=== PATIENT | male | born 1945 | race Caucasian/White ===

== ENCOUNTER 2017-03-04 20:27 | Observation (INO) | payer MEDICARE, OTHER ==
--- NOTE | 2017-03-04 21:05 | ERPHSYRPT ---
- History of Present Illness Time Seen by Provider: 03/04/17 21:04 Source: patient, family Exam Limitations: no limitations Patient Subjective Stated Complaint: states that pt fell on the ice and hit his head. states he was weak and almost passed out at home. Triage Nursing Assessment: pt alert and oriented. answers questions approp. slightly slow to answer at times. pt hard of hearing. pt ambulate from wheelchair to stretcher with assist. unsteady gait noted. respirations nonlabored with lungs cta. pupils equal and reactive. bilat upper and lower ext strength equal/ Physician History: states that pt fell on the ice and hit his head. states he was weak and almost passed out at home. Timing/Duration: today Severity: mild Associated Symptoms: denies symptoms Allergies/Adverse Reactions: Wiwwaer-Myr-Zef Reductase Inhibitor Allergy (Verified 03/04/17 20:52) Home Medications: Unobtainable [Unobtainable] 03/04/17 [History] Hx Tetanus, Diphtheria Vaccination/Date Given: Yes Hx Influenza Vaccination/Date Given: Yes Hx Pneumococcal Vaccination/Date Given: Yes Immunizations Up to Date: Yes - Review of Systems Constitutional: No Fever, No Chills Eyes: No Symptoms Ears, Nose, & Throat: No Symptoms Respiratory: No Cough, No Dyspnea Cardiac: No Chest Pain, No Edema, No Syncope Abdominal/Gastrointestinal: No Abdominal Pain, No Nausea, No Vomiting, No Diarrhea Genitourinary Symptoms: No Dysuria Musculoskeletal: Fall, No Back Pain, No Neck Pain Skin: No Rash Neurological: No Dizziness, No Focal Weakness, No Sensory Changes Psychological: No Symptoms Endocrine: No Symptoms All Other Systems: Reviewed and Negative - Past Medical History Neurological History: No Pertinent History Cardiac History: No Pertinent History Respiratory History: Other Endocrine Medical History: Diabetes Type II, Other Musculoskeletal History: Osteoarthritis, Osteoporosis Other Medical History: thyroid testing, lung nodules - Past Surgical History Past Surgical History: Yes Gastrointestinal: Cholecystectomy, Hernia Repair Musculoskeletal: Orthopedic Surgery Other Surgical History: bilat rcr - Social History Smoking Status: Former smoker Exposure to second hand smoke: No Drug Use: none Patient Lives Alone: No - Nursing Vital Signs Nursing Vital Signs: Initial Vital Signs Temperature 97.5 F 03/04/17 20:38 Pulse Rate 96 H 03/04/17 20:38 Respiratory Rate 18 03/04/17 20:38 Blood Pressure 165/93 03/04/17 20:38 O2 Sat by Pulse Oximetry 96 03/04/17 20:38 Pain Scale Pain Intensity 5 - Physical Exam General Appearance: no apparent distress, alert Eye Exam: PERRL/EOMI, eyes nml inspection Ears, Nose, Throat Exam: normal ENT inspection, TMs normal, pharynx normal, moist mucous membranes Neck Exam: normal inspection, non-tender, supple, full range of motion Respiratory Exam: normal breath sounds, lungs clear, No respiratory distress Cardiovascular Exam: regular rate/rhythm, normal heart sounds, normal peripheral pulses Gastrointestinal/Abdomen Exam: soft, normal bowel sounds, No tenderness, No mass Back Exam: normal inspection, normal range of motion, No CVA tenderness, No vertebral tenderness Extremity Exam: normal inspection, normal range of motion, pelvis stable Neurologic Exam: alert, oriented x 3, cooperative, normal mood/affect, nml cerebellar function, nml station & gait, sensation nml, No motor deficits Skin Exam: normal color, warm, dry, No rash Lymphatic Exam: No adenopathy SpO2: 96 Oxygen Delivery: Room Air - Course Nursing assessment & vital signs reviewed: Yes - CT Exams Head CT Interpretation: Tele-radiologist Report Ordered Tests: Active Orders 24 hr Category Date Time Status EKG-ER Only STAT Care 03/04/17 20:47 Active HEAD WITHOUT CONTRAST [CT] Stat Exams 03/04/17 20:48 Taken CBC W DIFF Stat Lab 03/04/17 20:55 Completed CMP Stat Lab 03/04/17 20:55 Completed TROPONIN Stat Lab 03/04/17 20:55 Completed Lab/Rad Data: Laboratory Result Diagrams 03/04/17 20:55 03/04/17 20:55 Laboratory Results 03/04/17 03/04/17 03/04/17 Range/Units 20:55 20:55 20:55 WBC 8.0 (4.0-10.5) K/mm3 RBC 4.64 (4.1-5.6) M/mm3 Hgb 13.7 (12.5-18.0) gm/dl Hct 40.7 L (42-50) % MCV 87.7 (78-100) fl MCH 29.5 (26-32) pg MCHC 33.7 (32-36) g/dl RDW 14.0 (11.5-14.0) % Plt Count 217 (150-450) K/mm3 MPV 9.6 H (6-9.5) fl Gran % 61.6 (36.0-66.0) % Lymphocytes % 22.4 L (24.0-44.0) % Monocytes % 10.9 (0.0-12.0) % Eosinophils % 4.6 (0.00-5.0) % Basophils % 0.5 (0.0-0.4) % Basophils # 0.04 (0-0.4) Sodium 142 (136-145) mEq/L Potassium 3.5 (3.5-5.1) mEq/L Chloride 103 (98-107) mEq/L Carbon Dioxide 29.2 (21-32) mEq/L Anion Gap 12.9 (5-15) MEQ/L BUN 19 (9-20) mg/dL Creatinine 1.75 H (0.55-1.30) mg/dl Estimated GFR 41 ML/MIN Glucose 223 H (70-110) MG/DL Calcium 10.7 H (8.5-10.1) mg/dL Total Bilirubin 0.30 (0.2-1.0) mg/dL AST 16 (15-37) U/L ALT 20 (12-78) U/L Alkaline Phosphatase 102 (46-116) U/L Troponin I 0.080 H* (0.000-0.056) ng/ml Serum Total Protein 7.1 (6.4-8.2) gm/dL Albumin 3.6 (3.4-5.0) g/dL - Progress Progress: unchanged Discussed with : Chris Will see patient in: hospital (observation) Counseled pt/family regarding: lab results, diagnosis, need for follow-up, rad results - Departure Time of Disposition: 21:55 Departure Disposition: Observation Clinical Impression: Troponin level elevated, Dizziness and giddiness Condition: Stable Critical Care Time: Yes Critical Care Time(excluding separately billable procedures): 30-74 minutes Referrals: [facility] [Primary Care Provider] -
[2017-03-04 21:08] LABS: BASOPHIL % 0.5 % (0.0-0.4); Eosinophil % 4.6 % (0.00-5.0); Granulocytes % 61.6 % (36.0-66.0); Lymphocytes % 22.4 % (24.0-44.0); Mean Cell Volume 87.7 fl (78-100); Mean Corpuscular Hemoglobin 29.5 pg (26-32); Mean Platelet Volume 9.6 fl (6-9.5); Monocytes % 10.9 % (0.0-12.0); Platelet Count 217 K/mm3 (150-450); Red Blood Count 4.64 M/mm3 (4.1-5.6)
[2017-03-04 21:31] LABS: ALBUMIN 3.6 g/dL (3.4-5.0); ANION GAP 12.9 MEQ/L (5-15); BILIRUBIN,TOTAL 0.3 mg/dL (0.2-1.0); Carbon Dioxide 29.2 mEq/L (21-32); Potassium 3.5 mEq/L (3.5-5.1); Total Protein 7.1 gm/dL (6.4-8.2)
[2017-03-04] MEDS ORDERED: NovoLIN R SQ PRN (23:06)
[2017-03-04] MEDS ORDERED: Senokot-S Tablet PO PRN (23:06)
[2017-03-04] MEDS ORDERED: MILK OF MAGNESIA 30 ML PO PRN (23:06)
[2017-03-04] MEDS ORDERED: Zofran 4 MG/2 ML VIAL IV PRN (23:06)
[2017-03-04] MEDS ORDERED: MAALOX ES 30 ML UNIT DOSE PO PRN (23:06)
[2017-03-04] MEDS ORDERED: Sodium Chloride 0.9% 500 ML 500 ML IV SCH (23:06)
[2017-03-04] MEDS: TYLENOL 325 MG PO PRN (23:19)
[2017-03-05] MEDS: TYLENOL 325 MG PO PRN (06:05)
[2017-03-05 08:06] VITALS: BP 155/81; PULSE 81; O2SAT 96
--- NOTE | 2017-03-05 09:16 | XRAY ---
Indication: Pain following posterior head injury. Nausea and feeling faint. Multiple contiguous axial images obtained through the head without contrast. Comparison: None Age-appropriate global atrophy and mild periventricular degenerative microvascular ischemia bilaterally. No acute intracranial hemorrhage, abnormal extra-axial fluid collection, or mass effect. Fourth ventricle is midline without hydrocephalus. Bony calvarium intact. Visualized paranasal sinuses and mastoid air cells are clear. Impression: Nonacute senile brain. Comment: Preliminary interpretation was made by [facility]. No discrepancy. CTDI 50.97
--- NOTE | 2017-03-05 09:26 | PCM.HP ---
History of Present Illness - Chief Complaint Chief Complaint: rule out ACS Date: 03/05/17 History of Present Illness: is a 71 year old male. who was taking his trash out in the snow yesterday and slipped on the ice hitting the back of his head. he made it back into the house but was confused. the neighbors came to help him get out of the chair and he became nauseated and vomited and they loaded him into the truck and drove him across the street to the ED. He was evaluated he denied chest pain or shortness of breath at the time. He cannot recall actually falling this am he just recalls going to take the trash out and then the neighbors being there trying to help him. He has not had chest pain overnight. He states he has history of [facility] He is unsure if he has any kidney trouble previously. He had a stress test he thinks 3 years ago that he reports was ok. Today he feels a little weak but has been up to the bathroom on his own with no dizziness or lightheadedness. He has no palpitations. He no longer has any nausea. He continues to have some pain in the back of his head where he fell on the concrete. - Review of Systems Constitutional: No Fever, No Chills Eyes: No Symptoms Ears, Nose, & Throat: No Symptoms Respiratory: No Cough, No Short Of Breath Cardiac: No Chest Pain, No Edema, No Syncope Abdominal/Gastrointestinal: No Abdominal Pain, No Nausea, No Vomiting, No Diarrhea Genitourinary Symptoms: No Dysuria Musculoskeletal: Back Pain, Neck Pain, Fall Skin: No Rash Neurological: Headache, No Dizziness, No Focal Weakness, No Sensory Changes Psychological: No Symptoms Endocrine: No Symptoms Hematologic/Lymphatic: No Symptoms Immunological/Allergic: No Symptoms Medications & Allergies Home Medications: Home Medication List Aspirin EC 325 mg [Ecotrin 325 MG] 325 mg PO DAILY 03/05/17 [History Confirmed 03/05/17] Benazepril HCl 10 mg PO DAILY 03/05/17 [History Confirmed 03/05/17] Calcium Carbonate/Vitamin D3 [Calcium 500 + Vit D Caplet] 1 each PO DAILY [History Confirmed 03/05/17] Docusate Sodium 100 mg [Colace 100 MG] 100 mg PO BIDPRN PRN 03/05/17 [ History Confirmed 03/05/17] Metformin HCl [Glucophage] 500 mg PO BID 03/05/17 [History Confirmed 03/05/17] Methocarbamol [Robaxin-750] 750 mg PO QIDPRN PRN 03/05/17 [History Confirmed ] Vit C/Vit E AC/Lut/Copper/Zinc [Preservision Lutein Softgel] 1 cap PO DAILY [History Confirmed 03/05/17] Allergies/Adverse Reactions: Allergies Allergy/AdvReac Type Severity Reaction Status Date / Time Tyguceg-Eml-Wni Reductase Allergy Verified 03/04/17 20:52 Inhibitor - Past Medical History Neurological History: No Pertinent History ENT History: No Pertinent History Cardiac History: No Pertinent History Respiratory History: Other Endocrine Medical History: Diabetes Type II, Other Musculoskelatal History: Osteoarthritis, Osteoporosis GI Medical History: No Pertinent History History: No Pertinent History Pyscho-Social History: No Pertinent History Male Reproductive Disorders: No Pertinent History Comment: thyroid testing, lung nodules - Past Surgical History Past Surgical History: Yes GI Surgical History: Cholecystectomy, Hernia Repair Musculskeletal Surgical Hx: Orthopedic Surgery Other Surgical History: bilat roator cuff repair, surgery on nose for snoring - Social History Smoking Status: Former smoker Exposure to second hand smoke: No Alcohol: None Drug Use: none - Physical Exam Vital Signs: Vital Signs - 24 hr Temp Pulse Resp BP Pulse Ox 03/05/17 08:00 98.2 F 81 18 155/81 96 03/05/17 07:51 97 03/05/17 04:00 98.0 F 89 16 170/85 97 03/04/17 23:27 98.0 F 97 H 20 166/83 94 L 03/04/17 21:56 96 03/04/17 21:32 96 H 16 142/83 100 03/04/17 20:38 97.5 F 96 H 18 165/93 96 General Appearance: no apparent distress, alert, obese Neurologic Exam: alert, oriented x 3, cooperative, normal mood/affect, nml cerebellar function, nml station & gait, sensation nml, No motor deficits Eye Exam: PERRL/EOMI, eyes nml inspection Ears, Nose, Throat Exam: normal ENT inspection, pharynx normal, moist mucous membranes Neck Exam: normal inspection, non-tender, supple, full range of motion Respiratory Exam: normal breath sounds, lungs clear, No respiratory distress Cardiovascular Exam: regular rate/rhythm, normal peripheral pulses, murmur (3/6 systolic at left sternal border), No edema Gastrointestinal/Abdomen Exam: soft, normal bowel sounds, No tenderness, No mass Back Exam: normal inspection, normal range of motion, No CVA tenderness, No vertebral tenderness Extremity Exam: normal inspection, normal range of motion, pelvis stable Skin Exam: normal color, warm, dry, No rash Lymphatic Exam: No adenopathy Results - Labs Lab/Micro Results: Accuchecks Date 03/05/17 Time 07:30 Accucheck Value: 145 Lab Results-Last 24 Hours 03/05/17 03/05/17 03/05/17 Range/Units 00:10 03:10 05:55 Troponin I 0.082 H* 0.087 H* (0.000-0.056) ng/ml Triglycerides 313 H (30-200) mg/dL Cholesterol 227 H (100-200) mg/dL LDL Cholesterol 130 H (5-99) mg/dL HDL Cholesterol 35 (35-60) mg/dL Heart Disease Risk Ratio 6.5 03/05/17 Range/Units 05:55 Troponin I 0.080 H* (0.000-0.056) ng/ml Triglycerides (30-200) mg/dL Cholesterol (100-200) mg/dL LDL Cholesterol (5-99) mg/dL HDL Cholesterol (35-60) mg/dL Heart Disease Risk Ratio Accuchecks Date 03/05/17 Time 07:30 Accucheck Value: 145 - Other Procedures and Tests Respiratory Therapy 03/06/17 05:00 EKG DAILY 03/07/17 05:00 EKG DAILY 03/08/17 05:00 EKG DAILY Assessment/Plan (1) Concussion Current Visit: Yes Status: Acute Assessment & Plan: symptoms resolving with exception of headache 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 He is ambulating well now he has renal insufficiency no old labs available to compare if this acute or chronic He has mild elevation in troponin that has remained stable throughout the night He has no evidence of acs on repeat ekg and no chest pain or sob. We discussed continue the aspirin. he is allergic to statins. We discussed in detail importance of outpatient follow up for further cardiac testing We recommended him have a stress test and echo with his murmur. [facility] Code(s): S06.0X9A - CONCUSSION W LOSS OF CONSCIOUSNESS OF UNSP DURATION, INIT (2) Fall Current Visit: Yes Status: Acute Code(s): W19.XXXA - UNSPECIFIED FALL, INITIAL ENCOUNTER (3) Renal insufficiency Current Visit: Yes Status: Acute (4) Troponin level elevated Current Visit: Yes Status: Acute Code(s): R74.8 - ABNORMAL LEVELS OF OTHER SERUM ENZYMES (5) Diabetes type 2, controlled Current Visit: Yes Status: Chronic Code(s): E11.9 - TYPE 2 DIABETES MELLITUS WITHOUT COMPLICATIONS
[2017-03-05] MEDS ORDERED: PLAVIX 75 MG Tablet PO SCH (10:00)
[2017-03-05] MEDS ORDERED: ENOXAPARIN SODIUM SQ SCH (10:00)
[2017-03-05] MEDS ORDERED: Ecotrin 325 MG PO SCH (10:00)
[2017-03-05 10:03] LABS: ANION GAP 13.3 MEQ/L (5-15); Carbon Dioxide 28.6 mEq/L (21-32); Potassium 3.5 mEq/L (3.5-5.1)
[2017-03-05 10:07] LABS: TROPONIN 0.081 ng/ml (0.000-0.056)
--- NOTE | 2017-03-05 10:12 | PCM.DCORD ---
- Discharge Discharge Date: 03/05/17 Disposition: Home, Self-Care Condition: Stable Prescriptions: Continue Vit C/Vit E AC/Lut/Copper/Zinc [Preservision Lutein Softgel] 1 cap PO DAILY Docusate Sodium 100 mg [Colace 100 MG] 100 mg PO BIDPRN PRN PRN Reason: Constipation Calcium Carbonate/Vitamin D3 [Calcium 500 + Vit D Caplet] 1 each PO DAILY Methocarbamol [Robaxin-750] 750 mg PO QIDPRN PRN PRN Reason: back pain Aspirin EC 325 mg [Ecotrin 325 MG] 325 mg PO DAILY Benazepril HCl 10 mg PO DAILY Metformin HCl [Glucophage] 500 mg PO BID Additional Instructions: Recommend follow up cardiac echocardiogram and stress test He would [facility]. He is calling tomorrow 03/06/17 [facility] [place] [facility] Follow up with: [facility] [Primary Care Provider] -
== END 2017-03-05 11:11 | disposition home or self-care (01) ==
LOC: ED 20:27 → MED SURG 22:50
PROVIDERS: ADMIT Family Medicine; ATTEND Family Medicine
DX: S06.0X9A Concussion with loss of consciousness of unspecified duration, initial encounter (principal); W00.0XXA Fall on same level due to ice and snow, initial encounter; Y93.9 Activity, unspecified; Y92.9 Unspecified place or not applicable; E11.9 Type 2 diabetes mellitus without complications; M81.0 Age-related osteoporosis without current pathological fracture; M19.90 Unspecified osteoarthritis, unspecified site; N28.9 Disorder of kidney and ureter, unspecified; R74.8 Abnormal levels of other serum enzymes
CPT/HCPCS: 36000; 36415; 70450; 80048; 80053; 80061; 83721; 84484; 85025; 93005; 93268; 99285; G0378; J1650; A9270-GY

== ENCOUNTER 2017-03-09 11:18 | Emergency (ER) | payer MEDICARE, OTHER ==
--- NOTE | 2017-03-09 11:44 | ERPHSYRPT ---
- History of Present Illness Time Seen by Provider: 03/09/17 11:34 Source: patient Exam Limitations: no limitations Physician History: The patient is a 71-year-old male with his who fell [place] kerline and has not been "right" since. He came to this hospital and had a head CT done and even spent the night for observation. Since his discharge, his speech has been slow and he has not been walking well. He still has a headache from the fall. He feels woozy when he stands. He is also had intermittent chest pains for 3 months. His chest pain will be sharp and lasts only 30 seconds to 1 minute at a time. His past medical history is significant for hypertension, chronic back pain with compression fracture in lumbar spine, and diabetes. Occurred: days ago (6) Reason for Fall: lost balance, fell from standing pos Injuries/Pain Location: head Loss of Consciousness: no loss of consciousness Severity of Pain-Max: mild Severity of Pain-Current: none Modifying Factors: Improves With: nothing Associated Symptoms (Fall): headache, lightheadedness, slurred speech, trouble walking Allergies/Adverse Reactions: Gqmfslz-Rxc-Bwh Reductase Inhibitor Allergy (Verified 03/09/17 11:35) Home Medications: Aspirin EC 325 mg [Ecotrin 325 MG] 325 mg PO DAILY 03/05/17 [History] Benazepril HCl 10 mg PO DAILY 03/05/17 [History] Calcium Carbonate/Vitamin D3 [Calcium 500 + Vit D Caplet] 1 each PO DAILY [History] Docusate Sodium 100 mg [Colace 100 MG] 100 mg PO BIDPRN PRN 03/05/17 [ History] Metformin HCl [Glucophage] 500 mg PO BID 03/05/17 [History] Methocarbamol [Robaxin-750] 750 mg PO QIDPRN PRN 03/05/17 [History] Vit C/Vit E AC/Lut/Copper/Zinc [Preservision Lutein Softgel] 1 cap PO DAILY [History] Amlodipine Besylate 10 mg [Norvasc 10 MG] 10 mg PO DAILY 03/09/17 [History] Hx Tetanus, Diphtheria Vaccination/Date Given: Yes Hx Influenza Vaccination/Date Given: Yes Hx Pneumococcal Vaccination/Date Given: Yes - Review of Systems Constitutional: No Fever, No Chills Eyes: No Symptoms Ears, Nose, & Throat: No Symptoms Respiratory: No Cough, No Dyspnea Cardiac: Chest Pain Abdominal/Gastrointestinal: No Abdominal Pain, No Nausea, No Vomiting, No Diarrhea Genitourinary Symptoms: No Dysuria Musculoskeletal: Back Pain Skin: No Rash Neurological: Headache, Speech Changes Psychological: No Symptoms Endocrine: No Symptoms Hematologic/Lymphatic: No Symptoms Immunological/Allergic: No Symptoms All Other Systems: Reviewed and Negative - Past Medical History Neurological History: No Pertinent History ENT History: No Pertinent History Cardiac History: No Pertinent History Respiratory History: Other Endocrine Medical History: Diabetes Type II, Other Musculoskeletal History: Osteoarthritis, Osteoporosis GI Medical History: No Pertinent History History: No Pertinent History Psycho-Social History: No Pertinent History Male Reproductive Disorders: No Pertinent History Other Medical History: thyroid testing, lung nodules - Past Surgical History Past Surgical History: Yes Gastrointestinal: Cholecystectomy, Hernia Repair Musculoskeletal: Orthopedic Surgery Other Surgical History: bilat roator cuff repair, surgery on nose for snoring - Social History Smoking Status: Former smoker Exposure to second hand smoke: No Drug Use: none Patient Lives Alone: No - Nursing Vital Signs Nursing Vital Signs: Initial Vital Signs Temperature 97.9 F 03/09/17 11:29 Pulse Rate 86 03/09/17 11:29 Respiratory Rate 18 03/09/17 11:29 Blood Pressure 159/86 03/09/17 11:29 O2 Sat by Pulse Oximetry 99 03/09/17 11:29 Pain Scale Pain Intensity 0 - Grace Coma Score Best Eye Response ([place]): (4) open spontaneously Best Verbal Response (Grace): (5) oriented Best Motor Response (Grace): (6) obeys commands [place] Total: 15 - Physical Exam General Appearance: mild distress Head Injury: no evidence of injury Eye Exam: PERRL/EOMI ENT Exam: airway nml Neck Exam: normal inspection, No tenderness Respiratory/Chest Exam: normal breath sounds, No chest tenderness, No respiratory distress Cardiovascular Exam: normal heart sounds, regular rate/rhythm Gastrointestinal Exam: soft, No tenderness, No distention, No guarding, No ecchymosis Rectal Exam: not done Back Exam: point tenderness Extremity Exam: normal inspection, normal range of motion, pelvis stable, No deformities Neurologic Exam: alert, oriented x 3, cooperative, architectural renderer II-XII nml as tested, normal mood/affect, dysarthria, other (difficulty with finger to nose testing bilateral), No nml cerebellar function Skin Exam: normal color, warm, dry SpO2 Interpretation: normal - Course EKG Interpreted by Me: RATE, Sinus Rhythm, NORMAL INTERVALS, NORMAL QRS, NORMAL ST-T, Other (no change comp to EKG 03/05/17.) - CT Exams Head CT Interpretation: Negative, Tele-radiologist Report, No/Intracranial Hemorrhag (per Dr Zambrano.) Ordered Tests: Active Orders 24 hr Category Date Time Status EKG-ER Only STAT Care 03/09/17 11:51 Active HEAD WITHOUT CONTRAST [CT] Stat Exams 03/09/17 11:52 Completed CBC W DIFF Stat Lab 03/09/17 11:51 Completed CMP Stat Lab 03/09/17 12:11 Completed CULTURE,URINE Stat Lab 03/09/17 13:10 Received Lactic Acid Stat Lab 03/09/17 12:00 Completed Manual Differential NC Stat Lab 03/09/17 11:51 Completed PROTIME WITH INR Stat Lab 03/09/17 12:11 Completed PTT Stat Lab 03/09/17 12:11 Completed UA W/ MICROSCOPIC Stat Lab 03/09/17 13:10 Completed Lab/Rad Data: Laboratory Result Diagrams 03/09/17 11:51 03/09/17 12:11 Laboratory Results 03/09/17 03/09/17 03/09/17 Range/Units 13:10 12:11 12:11 WBC (4.0-10.5) K/mm3 RBC (4.1-5.6) M/mm3 Hgb (12.5-18.0) gm/dl Hct (42-50) % MCV (78-100) fl MCH (26-32) pg MCHC (32-36) g/dl RDW (11.5-14.0) % Plt Count (150-450) K/mm3 MPV (6-9.5) fl Absolute Neutrophils (1.4-6.9) Segmented Neutrophils (36.-66.) % Band Neutrophils (0.0-2.0) % Lymphocytes (Manual) (24-44) % Monocytes (Manual) (0.0-12.0) % Eosinophils (Manual) (0.00-3.0) % Metamyelocytes % Differential Comment Platelet Estimate (NORMAL) Microcytosis INR 1.03 (0.8-3.0) APTT 30.8 (24.1-36.1) SECONDS Sodium 143 (136-145) mEq/L Potassium 3.7 (3.5-5.1) mEq/L Chloride 105 (98-107) mEq/L Carbon Dioxide 29.4 (21-32) mEq/L Anion Gap 11.8 (5-15) MEQ/L BUN 18 (9-20) mg/dL Creatinine 1.35 H (0.55-1.30) mg/dl Estimated GFR 55 ML/MIN Glucose 135 H (70-110) MG/DL Lactic Acid (0.4-2.0) Calcium 10.8 H (8.5-10.1) mg/dL Total Bilirubin 0.30 (0.2-1.0) mg/dL AST 16 (15-37) U/L ALT 23 (12-78) U/L Alkaline Phosphatase 87 (46-116) U/L Serum Total Protein 7.0 (6.4-8.2) gm/dL Albumin 3.4 (3.4-5.0) g/dL Ur Collection Type VOID Urine Color YELLOW (YELLOW) Urine Appearance CLEAR (CLEAR) Urine pH 6.0 (5-6) Ur Specific [place] 1.015 (1.005-1.025) Urine Protein TRACE (Negative) Urine Ketones NEGATIVE (NEGATIVE) Urine Blood NEGATIVE (0-5) Marc/ul Urine Nitrite NEGATIVE (NEGATIVE) Urine Bilirubin NEGATIVE (NEGATIVE) Urine Urobilinogen NORMAL (0-1) mg/dL Ur Leukocyte Esterase TRACE (NEGATIVE) Urine Microscopic RBC 0-2 (0-2) /HPF Urine Microscopic WBC 5-10 (0-5) /HPF Ur Epithelial Cells FEW (FEW) /HPF Urine Bacteria FEW (NEGATIVE) /HPF Urine Culture Reflexed YES (NO) Urine Glucose NEGATIVE (NEGATIVE) mg/dL Specimen Received 03/09/17 1310 03/09/17 03/09/17 Range/Units 12:00 11:51 WBC 8.5 (4.0-10.5) K/mm3 RBC 4.62 (4.1-5.6) M/mm3 Hgb 13.4 (12.5-18.0) gm/dl Hct 39.7 L (42-50) % MCV 85.9 (78-100) fl MCH 29.0 (26-32) pg MCHC 33.8 (32-36) g/dl RDW 13.7 (11.5-14.0) % Plt Count 220 (150-450) K/mm3 MPV 9.7 H (6-9.5) fl Absolute Neutrophils 5.5 (1.4-6.9) Segmented Neutrophils 60 (36.-66.) % Band Neutrophils 3 H (0.0-2.0) % Lymphocytes (Manual) 27 (24-44) % Monocytes (Manual) 5 (0.0-12.0) % Eosinophils (Manual) 4 H (0.00-3.0) % Metamyelocytes 1 % Differential Comment ABNORMAL Platelet Estimate NORMAL (NORMAL) Microcytosis 1+ INR (0.8-3.0) APTT (24.1-36.1) SECONDS Sodium (136-145) mEq/L Potassium (3.5-5.1) mEq/L Chloride (98-107) mEq/L Carbon Dioxide (21-32) mEq/L Anion Gap (5-15) MEQ/L BUN (9-20) mg/dL Creatinine (0.55-1.30) mg/dl Estimated GFR ML/MIN Glucose (70-110) MG/DL Lactic Acid 1.2 (0.4-2.0) Calcium (8.5-10.1) mg/dL Total Bilirubin (0.2-1.0) mg/dL AST (15-37) U/L ALT (12-78) U/L Alkaline Phosphatase (46-116) U/L Serum Total Protein (6.4-8.2) gm/dL Albumin (3.4-5.0) g/dL Ur Collection Type Urine Color (YELLOW) Urine Appearance (CLEAR) Urine pH (5-6) Ur Specific [place] (1.005-1.025) Urine Protein (Negative) Urine Ketones (NEGATIVE) Urine Blood (0-5) Marc/ul Urine Nitrite (NEGATIVE) Urine Bilirubin (NEGATIVE) Urine Urobilinogen (0-1) mg/dL Ur Leukocyte Esterase (NEGATIVE) Urine Microscopic RBC (0-2) /HPF Urine Microscopic WBC (0-5) /HPF Ur Epithelial Cells (FEW) /HPF Urine Bacteria (NEGATIVE) /HPF Urine Culture Reflexed (NO) Urine Glucose (NEGATIVE) mg/dL Specimen Received - Departure Time of Disposition: 13:41 Departure Disposition: Home Clinical Impression: UTI (urinary tract infection) Condition: Stable Critical Care Time: No Referrals: [facility] [Primary Care Provider] - Additional Instructions: The problems that you have been experiencing recently are due to a urinary tract infection. You were given Rocephin 1 g by IV in the ER. Take Keflex 500 mg 4 times a day for 7 days. Follow-up next week. If the condition worsens, do not hesitate to return to the ER. Prescriptions: Cephalexin Mh 500 mg [Keflex 500 mg] 1 cap PO QID #28 capsule
[2017-03-09 12:18] LABS: Hematocrit 39.7 % (42-50); Hemoglobin 13.4 gm/dl (12.5-18.0); Mean Cell Volume 85.9 fl (78-100); Mean Corpuscular Hgb Concent. 33.8 g/dl (32-36); Mean Platelet Volume 9.7 fl (6-9.5); Platelet Count 220 K/mm3 (150-450); Red Blood Count 4.62 M/mm3 (4.1-5.6); Red Cell Distribution Width 13.7 % (11.5-14.0); White Blood Count 8.5 K/mm3 (4.0-10.5)
[2017-03-09 12:34] LABS: INR 1.03 (0.8-3.0)
[2017-03-09 12:36] LABS: PTT 30.8 SECONDS (24.1-36.1)
[2017-03-09 12:40] LABS: ALBUMIN 3.4 g/dL (3.4-5.0); ANION GAP 11.8 MEQ/L (5-15); BILIRUBIN,TOTAL 0.3 mg/dL (0.2-1.0); Calcium 10.8 mg/dL (8.5-10.1); Carbon Dioxide 29.4 mEq/L (21-32); Creatinine 1 1.35 mg/dl (0.55-1.30); Potassium 3.7 mEq/L (3.5-5.1)
[2017-03-09 12:53] LABS: ABSOLUTE NEUTROPHILS 5.5 (1.4-6.9); Neutrophils 60 % (36.-66.); Total Cells Counted 100
[2017-03-09 12:54] LABS: BAND 3 % (0.0-2.0); Eosinophil 4 % (0.00-3.0); Lymphocytes 27 % (24-44); Metamyelocyte 1 %; Microcytosis 1+; Monocyte 5 % (0.0-12.0); Platelet Estimate NORMAL (NORMAL)
--- NOTE | 2017-03-09 12:58 | XRAY ---
Indication: Dizziness and confusion. Difference in speech. Status post fall 5 days ago. Multiple contiguous axial images obtained through the head without contrast. Comparison: March 04, 2017. Stable global atrophy and mild periventricular degenerative micro-ischemia. No acute intracranial hemorrhage, abnormal extra-axial fluid collection, or mass effect. Fourth ventricle is midline without hydrocephalus. Bony calvarium remains intact. Visualized paranasal sinuses and mastoid air cells are clear. Impression: Stable nonacute senile brain. CT DI 49.71
[2017-03-09 13:21] VITALS: O2SAT 97
[2017-03-09 13:32] LABS: Appearance CLEAR (CLEAR); Bacteria FEW /HPF (NEGATIVE); Bilirubin NEGATIVE (NEGATIVE); Blood NEGATIVE Ery/ul (0-5); Epithelial Cells FEW /HPF (FEW); Glucose NEGATIVE (NEGATIVE); Ketones NEGATIVE (NEGATIVE); Leukocyte Esterase TRACE (NEGATIVE); Nitrite NEGATIVE (NEGATIVE); Protein,Urine Dip TRACE (Negative); Specific Gravity 1.015 (1.005-1.025); Urobilinogen NORMAL mg/dL (0-1)
[2017-03-09] MEDS ORDERED: ROCEPHIN 1 Gm-D5w 50 ml Bag** 1 G/50 ML IVPB IV STA (13:41)
[2017-03-09] MEDS ORDERED: ROCEPHIN 1 Gm-D5w 50 ml Bag** 1 G/50 ML IVPB IV ONE (13:50)
[2017-03-09 14:17] VITALS: BP 188/46; PULSE 68
== END 2017-03-09 14:16 | disposition home or self-care (01) ==
LOC: ED 11:18
DX: N39.0 Urinary tract infection, site not specified (principal); R51 Headache; R47.81 Slurred speech; R26.2 Difficulty in walking, not elsewhere classified; W01.0XXA Fall on same level from slipping, tripping and stumbling without subsequent striking against object, initial encounter; E11.9 Type 2 diabetes mellitus without complications; Z79.4 Long term (current) use of insulin; M81.0 Age-related osteoporosis without current pathological fracture; M19.90 Unspecified osteoarthritis, unspecified site; Z79.899 Other long term (current) drug therapy; Z87.891 Personal history of nicotine dependence
CPT/HCPCS: 36415; 70450; 80053; 81000; 83605; 85025; 85610; 85730; 87086; 93005; 96365; 99284; J0696

== ENCOUNTER 2018-01-26 15:18 | Emergency (ER) | payer MEDICARE, OTHER ==
[2018-01-26] MEDS ORDERED: Sodium Chloride 0.9% 1000 ML 1,000 ML ONE (16:09)
--- NOTE | 2018-01-26 16:11 | ERPHSYRPT ---
- History of Present Illness Time Seen by Provider: 01/26/18 16:06 Source: patient Exam Limitations: no limitations Patient Subjective Stated Complaint: sudden onset dizziness prior to arrival. staets was feeling fine this AM./ did not take his B/P med this AM denies pain Triage Nursing Assessment: slow to answer questions.. very [place]. unable to tell me year or month. [employer] + but slightly weak bilaterally. does not want to open his eyes. says the lights are too bright.. noted MUNDO and no nystagmus noted. able to move lower extremities on command. states doesnt remember eating today. head turned to left Physician History: Him this is a 72-year-old white male with a history of diabetes type 2, osteoarthritis, osteoporosis, who apparently has been worked up for thyroid problems in the past but the family states he doesn't have any, and a history of lung nodules. He arrives with the medics with complaint patient with a sudden onset of dizziness, Symptoms since approximately one hour prior to arrival Medics were summoned and patient was noted to have elevated blood pressure patient was given nitroglycerin him one sublingually. Patient now states that he has a headache. He has not had a fever.He has no chest pain no shortness of breath, he does state that he is somewhat nauseous. Past medical history includes diabetes, osteoarthritis, osteoporosis, thyroid a workup in the past, lung nodules. Past surgical history includes cholecystectomy, hernia repair, thyroid surgery, bilateral rotator cuff repair, surgery on his nose for snoring. Social history former smoker. Timing/Duration: today (one hour prior to arrival) Severity: moderate Modifying Factors: Improves With: nothing Associated Symptoms: nausea, headaches (headache after nitroglycerine), malaise , No vomiting, No abdominal pain, No shortness of breath, No heartburn, No diaphoresis, No cough, No chills, No chest pain, No fever, No loss of appetite, No rash, No syncope, No seizure, No weakness Allergies/Adverse Reactions: Mrhncvq-Anj-Lrd Reductase Inhibitor Allergy (Verified 01/26/18 15:50) Home Medications: Aspirin EC 325 mg [Ecotrin 325 MG] 325 mg PO DAILY 03/05/17 [History] Benazepril HCl 10 mg PO DAILY 03/05/17 [History] Calcium Carbonate/Vitamin D3 [Calcium 500 + Vit D Caplet] 1 each PO DAILY [History] Docusate Sodium 100 mg [Colace 100 MG] 100 mg PO BIDPRN PRN 03/05/17 [ History] Metformin HCl [Glucophage] 500 mg PO BID 03/05/17 [History] Methocarbamol [Robaxin-750] 750 mg PO QIDPRN PRN 03/05/17 [History] Vit C/Vit E AC/Lut/Copper/Zinc [Preservision Lutein Softgel] 1 cap PO DAILY [History] Amlodipine Besylate 10 mg [Norvasc 10 MG] 10 mg PO DAILY 03/09/17 [History] Hx Tetanus, Diphtheria Vaccination/Date Given: Yes Hx Influenza Vaccination/Date Given: Yes Hx Pneumococcal Vaccination/Date Given: Yes - Review of Systems Constitutional: No Fever, No Chills Eyes: No Symptoms Ears, Nose, & Throat: No Symptoms Respiratory: No Cough, No Dyspnea Cardiac: No Chest Pain, No Edema, No Syncope Abdominal/Gastrointestinal: No Abdominal Pain, No Nausea, No Vomiting, No Diarrhea Genitourinary Symptoms: No Dysuria Musculoskeletal: No Back Pain, No Neck Pain Skin: No Rash Neurological: Dizziness, Headache (headache after nitroglycerine), No Focal Weakness, No Gait Changes, No Irritability, No Lethargy, No Paralysis, No Parasthesia, No Seizure, No Sensory Changes, No Speech Changes, No Tics, No Tremors, No Vertigo Psychological: No Symptoms Endocrine: No Symptoms All Other Systems: Reviewed and Negative - Past Medical History Pertinent Past Medical History: Yes Neurological History: No Pertinent History ENT History: No Pertinent History Cardiac History: No Pertinent History Respiratory History: Other Endocrine Medical History: Diabetes Type II, Other Musculoskeletal History: Osteoarthritis, Osteoporosis GI Medical History: No Pertinent History History: No Pertinent History Psycho-Social History: No Pertinent History Male Reproductive Disorders: No Pertinent History Other Medical History: thyroid testing, lung nodules - Past Surgical History Past Surgical History: Yes Gastrointestinal: Cholecystectomy, Hernia Repair Musculoskeletal: Orthopedic Surgery Other Surgical History: bilat roator cuff repair, surgery on nose for snoring - Social History Smoking Status: Never smoker Exposure to second hand smoke: No Drug Use: none Patient Lives Alone: No - Nursing Vital Signs Nursing Vital Signs: Initial Vital Signs Temperature 98.7 F 01/26/18 15:19 Pulse Rate 85 01/26/18 15:19 Blood Pressure 152/104 01/26/18 15:19 O2 Sat by Pulse Oximetry 94 L 01/26/18 15:19 Pain Scale Pain Intensity 0 - Physical Exam General Appearance: other (elderly white malehe does not appear to bein acute distress oriented to himselfand place) Eye Exam: PERRL/EOMI, eyes nml inspection Ears, Nose, Throat Exam: normal ENT inspection, TMs normal, pharynx normal, moist mucous membranes Neck Exam: normal inspection, non-tender, supple, full range of motion Respiratory Exam: normal breath sounds, lungs clear, No respiratory distress Cardiovascular Exam: regular rate/rhythm, normal heart sounds, normal peripheral pulses Gastrointestinal/Abdomen Exam: soft, normal bowel sounds, No tenderness, No mass Back Exam: normal inspection Extremity Exam: normal inspection, normal range of motion, pelvis stable Neurologic Exam: alert, oriented x 3 (oriented to person and place), cooperative , pipe roller II-XII nml as tested, other (Patient is alert, answers questions well and appropriately, no facial droop, cranial nerves II through XII intact, freedom of information officer equal 5 over 5, normal finger to nose, full range of motion all extremities, sensation intact to all extremities, GCS equals 15), No motor deficits, No sensory deficit Skin Exam: normal color, warm, dry, No rash SpO2 Interpretation: normal (94%) SpO2: 94 Oxygen Delivery: Room Air - Course Nursing assessment & vital signs reviewed: Yes EKG Interpreted by Me: RATE (89 bpm), Sinus Rhythm, NORMAL AXIS, Other (EKG: Sinus rhythm, first degree AV block 89 bpm, normal axis,poor anterior R-wave progression, no acute ST or T wave changes, no acute changes as compared to March 09, 2017.) - Radiology Exams Chest X-ray Interpretation: Interpreted by me (chest x-ray: Low lung volumes, increased lung markings in right base possibly secondary to atelectasis) - CT Exams Head CT Interpretation: Tele-radiologist Report (head CT: Impression: 1. No acute intracranial pathology. 2 other chronic findings as above (brain small areas of chronic right parietal encephalomalacia. Nonspecific hypodensities of the periventricular and deep subcortical white matte. Most likely secondary to chronic small vessel. Ventricles: Prominence of the ventricals and sulci, most likely attributed to iveth no volume loss, vasculature atherosclerotic calcification of the intracranial arterial vasculature.) Ordered Tests: Active Orders 24 hr Category Date Time Status Accucheck STAT Care 01/26/18 16:03 Active Is/It Project Manager STAT Care 01/26/18 16:04 Active EKG-ER Only STAT Care 01/26/18 16:03 Active IV Insertion STAT Care 01/26/18 16:03 Active CHEST 1 VIEW (PORTABLE) Stat Exams 01/26/18 16:04 Completed HEAD WITHOUT CONTRAST [CT] Stat Exams 01/26/18 16:04 Completed CBC W DIFF Stat Lab 01/26/18 16:15 Completed CMP Stat Lab 01/26/18 16:15 Completed ETHYL ALCOHOL Stat Lab 01/26/18 16:15 Completed Lactic Acid Stat Lab 01/26/18 16:15 Completed Manual Differential NC Stat Lab 01/26/18 16:15 Completed TROPONIN Q3H Lab 01/26/18 16:15 Completed TROPONIN Q3H Lab 01/26/18 19:15 Ordered TROPONIN Q3H Lab 01/26/18 22:15 Ordered TROPONIN Q3H Lab 01/27/18 01:15 Ordered TROPONIN Q3H Lab 01/27/18 04:15 Ordered UA W/RFX UR CULTURE Stat Lab 01/26/18 17:11 Completed Medication Summary Generic Name Dose Route Start Last Admin Trade Name Freq PRN Reason Stop Dose Admin Sodium Chloride 1,000 mls @ 100 mls/hr 01/26/18 16:15 01/26/18 16:11 Sodium Chloride 0.9% 1000 Ml IV 02/25/18 16:14 100 mls/hr .Q10H MILANA Administration Lab/Rad Data: Laboratory Result Diagrams 01/26/18 16:15 01/26/18 16:15 Laboratory Results 01/26/18 01/26/18 01/26/18 Range/Units 17:11 16:15 16:15 WBC (4.0-10.5) K/mm3 RBC (4.1-5.6) M/mm3 Hgb (12.5-18.0) gm/dl Hct (42-50) % MCV (78-100) fl MCH (26-32) pg MCHC (32-36) g/dl RDW (11.5-14.0) % Plt Count (150-450) K/mm3 MPV (6-9.5) fl Segmented Neutrophils (36.-66.) % Band Neutrophils (0.0-2.0) % Lymphocytes (Manual) (24-44) % Monocytes (Manual) (0.0-12.0) % Eosinophils (Manual) (0.00-3.0) % Platelet Estimate (NORMAL) RBC Morphology Sodium 142 (137-145) mmol/L Potassium 4.2 (3.5-5.1) mmol/L Chloride 103 (98-107) mmol/L Carbon Dioxide 30 (22-30) mmol/L Anion Gap 13.3 (5-15) MEQ/L BUN 19 (9-20) mg/dL Creatinine 1.04 (0.66-1.25) mg/dL Estimated GFR > 60.0 ML/MIN Glucose 133 H (74-106) mg/dL Lactic Acid (0.4-2.0) Calcium 9.5 (8.4-10.2) mg/dL Total Bilirubin 0.30 (0.2-1.3) mg/dL AST 15 L (17-59) U/L ALT 17 (0-50) U/L Alkaline Phosphatase 90 (38-126) U/L Troponin I 0.019 (0.000-0.034) ng/mL Serum Total Protein 6.9 (6.3-8.2) g/dL Albumin 4.1 (3.5-5.0) g/dL Urine Color YELLOW (YELLOW) Urine Appearance CLEAR (CLEAR) Urine pH 6.0 (5-6) Ur Specific [place] 1.019 (1.005-1.025) Urine Protein NEGATIVE (Negative) Urine Ketones NEGATIVE (NEGATIVE) Urine Blood NEGATIVE (0-5) Marc/ul Urine Nitrite NEGATIVE (NEGATIVE) Urine Bilirubin NEGATIVE (NEGATIVE) Urine Urobilinogen NEGATIVE (0-1) mg/dL Ur Leukocyte Esterase NEGATIVE (NEGATIVE) Urine WBC (Auto) NONE (0-5) /HPF Urine RBC (Auto) NONE (0-2) /HPF U Hyaline Cast (Auto) 0-2 (0-2) /LPF U Epithel Cells (Auto) NONE (FEW) /HPF Urine Bacteria (Auto) NONE SEEN (NEGATIVE) /HPF Urine Culture Reflexed NO (NO) Urine Glucose NEGATIVE (NEGATIVE) mg/dL Ethyl Alcohol < 10 (0-10) mg/dL 01/26/18 01/26/18 Range/Units 16:15 16:15 WBC 7.7 (4.0-10.5) K/mm3 RBC 4.85 (4.1-5.6) M/mm3 Hgb 14.5 (12.5-18.0) gm/dl Hct 42.9 (42-50) % MCV 88.5 (78-100) fl MCH 29.9 (26-32) pg MCHC 33.8 (32-36) g/dl RDW 14.0 (11.5-14.0) % Plt Count 212 (150-450) K/mm3 MPV 9.7 H (6-9.5) fl Segmented Neutrophils 68 H (36.-66.) % Band Neutrophils 1 (0.0-2.0) % Lymphocytes (Manual) 18 L (24-44) % Monocytes (Manual) 7 (0.0-12.0) % Eosinophils (Manual) 6 H (0.00-3.0) % Platelet Estimate NORMAL (NORMAL) RBC Morphology NORMAL Sodium (137-145) mmol/L Potassium (3.5-5.1) mmol/L Chloride (98-107) mmol/L Carbon Dioxide (22-30) mmol/L Anion Gap (5-15) MEQ/L BUN (9-20) mg/dL Creatinine (0.66-1.25) mg/dL Estimated GFR ML/MIN Glucose (74-106) mg/dL Lactic Acid 1.6 (0.4-2.0) Calcium (8.4-10.2) mg/dL Total Bilirubin (0.2-1.3) mg/dL AST (17-59) U/L ALT (0-50) U/L Alkaline Phosphatase (38-126) U/L Troponin I (0.000-0.034) ng/mL Serum Total Protein (6.3-8.2) g/dL Albumin (3.5-5.0) g/dL Urine Color (YELLOW) Urine Appearance (CLEAR) Urine pH (5-6) Ur Specific [place] (1.005-1.025) Urine Protein (Negative) Urine Ketones (NEGATIVE) Urine Blood (0-5) Marc/ul Urine Nitrite (NEGATIVE) Urine Bilirubin (NEGATIVE) Urine Urobilinogen (0-1) mg/dL Ur Leukocyte Esterase (NEGATIVE) Urine WBC (Auto) (0-5) /HPF Urine RBC (Auto) (0-2) /HPF U Hyaline Cast (Auto) (0-2) /LPF U Epithel Cells (Auto) (FEW) /HPF Urine Bacteria (Auto) (NEGATIVE) /HPF Urine Culture Reflexed (NO) Urine Glucose (NEGATIVE) mg/dL Ethyl Alcohol (0-10) mg/dL - Progress Progress: improved Progress Note: 01/26/18 17:42 This is a 72-year-old white male with history of diabetes, osteoarthritis, osteoporosis, he arrives via ambulance with complaints of suddenly felt dizzy while sitting at the table he apparently laid his head down onto the table medics were summoned who is noted to have an elevated blood pressure they gave him nitroglycerin. Nurses had reported the patient's seemed to be perhaps somewhat confused on arrival By the time I got into the room patient was alert and talking We did a head CT on this patient it did not show acute intracranial abnormalities patient's vitals were stable EKG is remarkable for sinus rhythm with first-degree AV block 89 bpm normal axis no acute ST or T wave changes Patient's labs were essentially normal lactate was 1.6 CBC White blood cell 7.7 hemoglobin 14.5 hematocrit 42.9.212 patient's troponin within normal limits chemistry essentially normal with the exception of a glucose of 133 patient did have a headache after receiving nitroglycerin he states he is feeling much better patient was placed on some IV saline otherwise has not received other treatment. He is now alert oriented 3 he is very talkative he is in no acute distress. Family members states that the patient acted like he was low on his blood sugars which is possible. Patient is currently in no distress his labs are normal he is alert oriented 3. Will give patient a total of 500 mL of normal saline if patient continues to do well we'll consider releasing the patient. The patient does have an appointment scheduled in approximately 10 days with his family doctor. Will have patient contact his family doctor Sunday and see if this is appropriate or if he like to see him earlier. I have told the patient to return for acute distress or for severe symptoms. - Departure Time of Disposition: 17:56 Departure Disposition: Home Clinical Impression: transient dizziness, Transient confusion Condition: Fair Critical Care Time: No Referrals: [facility]OSP[facility],'[facility] [Primary Care Provider] - Additional Instructions: Return home rest plenty of fluids. Follow-up with your family doctor. Return for acute distress or for severe symptoms.
[2018-01-26] MEDS ORDERED: Sodium Chloride 0.9% 1000 ML 1,000 ML IV SCH (16:15)
[2018-01-26 16:21] LABS: Hematocrit 42.9 % (42-50); Hemoglobin 14.5 gm/dl (12.5-18.0); Mean Cell Volume 88.5 fl (78-100); Mean Corpuscular Hemoglobin 29.9 pg (26-32); Mean Corpuscular Hgb Concent. 33.8 g/dl (32-36); Mean Platelet Volume 9.7 fl (6-9.5); Platelet Count 212 K/mm3 (150-450); Red Blood Count 4.85 M/mm3 (4.1-5.6); White Blood Count 7.7 K/mm3 (4.0-10.5)
[2018-01-26 16:47] LABS: ALBUMIN 4.1 g/dL (3.5-5.0); ALKALINE PHOSPHATASE 90 U/L (38-126); ANION GAP 13.3 MEQ/L (5-15); BLOOD UREA NITROGEN 19 mg/dL (9-20); CHLORIDE 103 mmol/L (98-107); Calcium 9.5 mg/dL (8.4-10.2); Carbon Dioxide 30 mmol/L (22-30); Creatinine 1 1.04 mg/dL (0.66-1.25); Glucose 133 mg/dL (74-106); Potassium 4.2 mmol/L (3.5-5.1); SGOT/AST 15 U/L (17-59); SGPT/ALT 17 U/L (0-50); SODIUM 142 mmol/L (137-145); Total Protein 6.9 g/dL (6.3-8.2)
[2018-01-26 16:49] LABS: BAND 1 % (0.0-2.0); Eosinophil 6 % (0.00-3.0); Lymphocytes 18 % (24-44); Monocyte 7 % (0.0-12.0); Neutrophils 68 % (36.-66.); Platelet Estimate NORMAL (NORMAL); Total Cells Counted 100
[2018-01-26 17:10] LABS: ETHYL ALCOHOL < 10 mg/dL (0-10)
[2018-01-26 17:28] LABS: Appearance CLEAR (CLEAR); Bilirubin NEGATIVE (NEGATIVE); Blood NEGATIVE Ery/ul (0-5); Glucose NEGATIVE (NEGATIVE); Ketones NEGATIVE (NEGATIVE); Leukocyte Esterase NEGATIVE (NEGATIVE); Nitrite NEGATIVE (NEGATIVE); Protein,Urine Dip NEGATIVE (Negative); Specific Gravity 1.019 (1.005-1.025); Urobilinogen NEGATIVE mg/dL (0-1)
--- NOTE | 2018-01-26 17:47 | XRAY ---
Indication: Dizziness. Comparison: None Portable chest markedly underinflated accentuating the cardiopulmonary structures. Query right base infiltrates/atelectasis. Elsewhere tiny scattered calcified granulomas. Heart is not enlarged for AP portable projection. Bony thorax intact with small left humeral neck bone cyst. Impression: Underinflated lungs. Query right base infiltrate/atelectasis. Evidence for old granulomatous disease.
--- NOTE | 2018-01-26 17:49 | XRAY ---
Indication: Dizziness. Multiple contiguous axial images obtained through the head without contrast. Comparison: March 09, 2017. Stable age-appropriate global atrophy and mild periventricular degenerative micro-ischemia. 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 No acute intracranial hemorrhage, abnormal extra-axial fluid collection, or mass effect. Fourth ventricle is midline without hydrocephalus. Bony calvarium intact. Visualized paranasal sinuses and mastoid air cells are clear. Impression: 1. 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 2. Stable atrophy and degenerative micro-ischemia. 3. No acute intracranial abnormalities. Comment: Preliminary interpretation was made by C. No discrepancy. CTDI 68.32
[2018-01-26 18:05] VITALS: BP 179/94; PULSE 86; O2SAT 97
== END 2018-01-26 18:24 | disposition home or self-care (01) ==
LOC: ED 15:18
DX: R42 Dizziness and giddiness (principal); R41.0 Disorientation, unspecified; R51 Headache; R11.0 Nausea; I44.0 Atrioventricular block, first degree; Z79.899 Other long term (current) drug therapy; E11.9 Type 2 diabetes mellitus without complications; Z79.84 Long term (current) use of oral hypoglycemic drugs
CPT/HCPCS: 36000; 36415; 70450; 71045; 80053; 81001; 82962; 83605; 84484; 85025; 93005; 93041; 99284; G0480; 80307

== ENCOUNTER 2018-04-20 09:57 | Emergency (ER) | payer MEDICARE, OTHER ==
[2018-04-20] MEDS ORDERED: Nitrostat 0.4 MG (ED) SL ONE (10:12)
[2018-04-20] MEDS ORDERED: BABY ASPIRIN 81 MG CHEW PO ONE (10:12)
[2018-04-20] MEDS ORDERED: Sodium Chloride 0.9% 1000 ML 1,000 ML IV SCH (10:15)
[2018-04-20] MEDS ORDERED: Sodium Chloride 0.9% 1000 ML 1,000 ML ONE (10:17)
--- NOTE | 2018-04-20 10:19 | ERPHSYRPT ---
- History of Present Illness Time Seen by Provider: 04/20/18 10:05 Historian: patient, family Exam Limitations: clinical condition Physician History: 72 y/o white male presents with mid substernal cp. feels as though something stuck chest. no radiation. no soa. pt with h/o elevated lipids, htn and over weight. nonsmoker. no prior cardiac hx. 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) Activities at Onset: activity (eating) Quality: pressure, tightness Location: substernal Chest Pain Radiation: no radiation Severity of Pain-Max: moderate Severity of Pain-Current: mild Modifying Factors: Improves With: nothing Associated Symptoms: diaphoresis, No nausea, No vomiting, No shortness of breath Prior Chest Pain/Cardiac Workup: no prior chest pain, no prior cardiac workup Nitro Today/Relief: no nitro taken today Aspirin Treatment Today: no aspirin today Allergies/Adverse Reactions: Jnbfizf-Pvw-Cwn Reductase Inhibitor Allergy (Verified 04/20/18 10:12) Home Medications: Benazepril HCl 10 mg PO DAILY 03/05/17 [History] Calcium Carbonate/Vitamin D3 [Calcium 500 + Vit D Caplet] 1 each PO DAILY [History] Docusate Sodium 100 mg [Colace 100 MG] 100 mg PO BIDPRN PRN 03/05/17 [ History] Metformin HCl [Glucophage] 500 mg PO BID 03/05/17 [History] Methocarbamol [Robaxin-750] 750 mg PO QIDPRN PRN 03/05/17 [History] Vit C/Vit E AC/Lut/Copper/Zinc [Preservision Lutein Softgel] 1 cap PO DAILY [History] Amlodipine Besylate 10 mg [Norvasc 10 MG] 10 mg PO DAILY 03/09/17 [History] Hx Tetanus, Diphtheria Vaccination/Date Given: Yes Hx Influenza Vaccination/Date Given: Yes Hx Pneumococcal Vaccination/Date Given: Yes - Review of Systems Constitutional: No Symptoms Eyes: No Symptoms Ears, Nose, & Throat: No Symptoms Respiratory: No Symptoms Cardiac: Chest Pain, No Palpitations, No Syncope Abdominal/Gastrointestinal: No Symptoms, No Abdominal Pain, No Nausea, No Vomiting, No Diarrhea Genitourinary Symptoms: No Symptoms, No Dysuria, No Frequency, No Hematuria Musculoskeletal: No Symptoms, No Back Pain Skin: No Symptoms Neurological: No Symptoms Psychological: No Symptoms Endocrine: No Symptoms Hematologic/Lymphatic: No Symptoms Immunological/Allergic: No Symptoms All Other Systems: Reviewed and Negative - Past Medical History Pertinent Past Medical History: Yes Neurological History: No Pertinent History ENT History: No Pertinent History Cardiac History: Hypertension Respiratory History: No Pertinent History Endocrine Medical History: Diabetes Type II Musculoskeletal History: Osteoarthritis GI Medical History: No Pertinent History History: No Pertinent History Psycho-Social History: No Pertinent History Male Reproductive Disorders: No Pertinent History Other Medical History: thyroid testing, lung nodules - Past Surgical History Past Surgical History: Yes Neuro Surgical History: No Pertinent History Cardiac: No Pertinent History Respiratory: No Pertinent History Gastrointestinal: Cholecystectomy, Hernia Repair Genitourinary: No Pertinent History Musculoskeletal: No Pertinent History, Orthopedic Surgery Male Surgical History: No Pertinent History Other Surgical History: bilat roator cuff repair, surgery on nose for snoring - Social History Smoking Status: Never smoker Exposure to second hand smoke: No Drug Use: none Patient Lives Alone: No - Nursing Vital Signs Nursing Vital Signs: Initial Vital Signs Pulse Rate 110 H 04/20/18 10:00 Respiratory Rate 18 04/20/18 10:00 Blood Pressure 169/126 04/20/18 10:00 O2 Sat by Pulse Oximetry 96 04/20/18 10:00 Pain Scale Pain Intensity 2 - Physical Exam General Appearance: mild distress, alert Eye Exam: PERRL/EOMI Ears, Nose, Throat Exam: normal ENT inspection, moist mucous membranes Neck Exam: normal inspection, non-tender, supple, full range of motion Respiratory Exam: normal breath sounds, chest tenderness, lungs clear, airway intact, No respiratory distress, No accessory muscle use, No rhonchi, No wheezing, No stridor Cardiovascular Exam: normal heart sounds, normal peripheral pulses, tachycardia Rectal Exam: not done Back Exam: normal inspection, normal range of motion, No CVA tenderness, No vertebral tenderness Extremity Exam: normal inspection, normal range of motion, pelvis stable Neurologic Exam: alert, oriented x 3, cooperative, solar tech II-XII nml as tested Skin Exam: normal color, warm, diaphoresis Lymphatic Exam: No adenopathy SpO2 Interpretation: normal O2 Delivery: Room Air - Course Nursing assessment & vital signs reviewed: Yes EKG Interpreted by Me: RATE, Sinus Tach, NORMAL AXIS, ST Elev (V2), Other ( compared to ekg dated , persistent av block 1st degree; new nonspecific st changees with new st elevation ) Ordered Tests: Active Orders 24 hr Category Date Time Status Stonework Tracer STAT Care 04/20/18 10:12 Active EKG-ER Only STAT Care 04/20/18 10:12 Active IV Insertion STAT Care 04/20/18 10:12 Active CHEST 1 VIEW (PORTABLE) Stat Exams 04/20/18 10:23 Taken CBC W DIFF Stat Lab 04/20/18 10:10 Completed CK-Creatinine Phosphokinase Stat Lab 04/20/18 10:10 Received CMP Stat Lab 04/20/18 10:10 Received D-DIMER QUANTITATION Stat Lab 04/20/18 10:29 Ordered Manual Differential NC Stat Lab 04/20/18 10:10 Completed NT PRO BNP Stat Lab 04/20/18 10:10 Received TROPONIN Q3H Lab 04/20/18 10:10 Received TROPONIN Q3H Lab 04/20/18 13:15 Ordered TROPONIN Q3H Lab 04/20/18 16:15 Ordered TROPONIN Q3H Lab 04/20/18 19:15 Ordered TROPONIN Q3H Lab 04/20/18 22:15 Ordered Medication Summary Generic Name Dose Route Start Last Admin Trade Name Freq PRN Reason Stop Dose Admin Sodium Chloride 1,000 mls @ 50 mls/hr 04/20/18 10:15 04/20/18 10:25 Sodium Chloride 0.9% 1000 Ml IV 05/20/18 10:14 50 mls/hr .Q20H MILANA Administration Discontinued Medications Generic Name Dose Route Start Last Admin Trade Name Freq PRN Reason Stop Dose Admin Aspirin 324 mg 04/20/18 10:12 04/20/18 10:16 Baby Aspirin 81 Mg Chew PO 04/20/18 10:13 324 mg STAT ONE Administration Morphine Sulfate 2 mg 04/20/18 10:23 04/20/18 10:28 Morphine Sulfate 2 Mg Inj IV 04/20/18 10:24 2 mg STAT ONE Administration Morphine Sulfate Confirm 04/20/18 10:27 Morphine Sulfate 2 Mg Inj Administered 04/20/18 10:28 Dose 2 mg .ROUTE .STK-MED ONE Nitroglycerin 0.4 mg 04/20/18 10:12 04/20/18 10:17 Nitrostat 0.4 Mg (Ed) SL 04/20/18 10:13 0.4 mg STAT ONE Administration Lab/Rad Data: Laboratory Result Diagrams 04/20/18 10:10 Laboratory Results 04/20/18 Range/Units 10:10 WBC 17.3 H (4.0-10.5) K/mm3 RBC 5.40 (4.1-5.6) M/mm3 Hgb 16.0 (12.5-18.0) gm/dl Hct 46.5 (42-50) % MCV 86.1 (78-100) fl MCH 29.6 (26-32) pg MCHC 34.4 (32-36) g/dl RDW 13.9 (11.5-14.0) % Plt Count 337 (150-450) K/mm3 MPV 9.9 H (6-9.5) fl - Progress Progress: unchanged Air Movement: good Progress Note: 04/20/18 10:[address] pendleton at [facility]. he evaluated ekg and agrees stemi. he accepts pt. will follow stemi protocol. Counseled pt/family regarding: lab results, diagnosis - Departure Time of Disposition: 10:34 Departure Disposition: Home Clinical Impression: STEMI (ST elevation myocardial infarction) Condition: Stable Critical Care Time: Yes Critical Care Time(excluding separately billable procedures): 30-74 minutes Referrals: HOSP[facility],'[facility] [Primary Care Provider] -
[2018-04-20 10:20] LABS: Hematocrit 46.5 % (42-50); Mean Cell Volume 86.1 fl (78-100); Mean Corpuscular Hemoglobin 29.6 pg (26-32); Mean Corpuscular Hgb Concent. 34.4 g/dl (32-36); Mean Platelet Volume 9.9 fl (6-9.5); Platelet Count 337 K/mm3 (150-450); Red Cell Distribution Width 13.9 % (11.5-14.0); White Blood Count 17.3 K/mm3 (4.0-10.5)
[2018-04-20] MEDS ORDERED: MORPHINE SULFATE 2 MG INJ IV ONE (10:23)
[2018-04-20 10:24] VITALS: BP 168/115; PULSE 113; O2SAT 97
[2018-04-20] MEDS ORDERED: MORPHINE SULFATE 2 MG INJ ONE (10:27)
[2018-04-20 10:40] LABS: ALBUMIN 4.8 g/dL (3.5-5.0); ALKALINE PHOSPHATASE 110 U/L (38-126); ANION GAP 16.3 MEQ/L (5-15); BLOOD UREA NITROGEN 20 mg/dL (9-20); CHLORIDE 103 mmol/L (98-107); CK-Creatinine Phosphokinase 30 U/L (55-170); Calcium 10.6 mg/dL (8.4-10.2); Carbon Dioxide 25 mmol/L (22-30); Creatinine 1 1.08 mg/dL (0.66-1.25); Glucose 168 mg/dL (74-106); NT PRO BNP 320 pg/mL (0-900); Potassium 4.2 mmol/L (3.5-5.1); SGOT/AST 17 U/L (17-59); SGPT/ALT 19 U/L (0-50); SODIUM 140 mmol/L (137-145); Total Protein 8.3 g/dL (6.3-8.2)
[2018-04-20 12:45] LABS: ATYPICAL LYMPHS 2 %; BAND 3 % (0.0-2.0); Lymphocytes 15 % (24-44); Monocyte 5 % (0.0-12.0); Neutrophils 75 % (36.-66.); Platelet Estimate NORMAL (NORMAL); Total Cells Counted 100; Toxic Granulation 1+
--- NOTE | 2018-04-20 18:59 | XRAY ---
Indication: Chest pain. Comparison: January 26, 2018. Portable chest unchanged again markedly underinflated accentuating the cardiopulmonary structures with bibasilar infiltrates versus atelectasis. Heart is not enlarged. No new cardiopulmonary abnormalities.
== END 2018-04-20 10:43 | disposition short-term general hospital (02) ==
LOC: ED 09:57
DX: I21.3 ST elevation (STEMI) myocardial infarction of unspecified site (principal); I10 Essential (primary) hypertension; E11.9 Type 2 diabetes mellitus without complications; R07.89 Other chest pain; M19.90 Unspecified osteoarthritis, unspecified site; Z79.01 Long term (current) use of anticoagulants; Z79.899 Other long term (current) drug therapy
CPT/HCPCS: 36000; 36415; 71045; 80053; 82550; 83880; 84484; 85025; 85379; 93005; 93041; 96360; 96374; 99285; 99291; J2270; A9270-GY

== ENCOUNTER 2018-04-23 13:04 | Inpatient (IN) | payer MEDICARE, OTHER ==
[2018-04-23] MEDS ORDERED: Aplisol ID ONE (15:00)
[2018-04-23] MEDS ORDERED: MENTHOL TP PRN (16:43)
[2018-04-23] MEDS ORDERED: Nitrostat 0.4 MG Tablet SL PRN (16:45)
[2018-04-23] MEDS ORDERED: Pain Relieving Rub TOP PRN (16:53)
[2018-04-23] MEDS ORDERED: METFORMIN HCL 500 MG PO SCH (17:00)
[2018-04-23] MEDS ORDERED: MEDICATION INTERVENTION MC SCH (17:15)
--- NOTE | 2018-04-23 17:24 | PCM.HP ---
History of Present Illness - Chief Complaint Chief Complaint: DECONDITION R/T STEMI, PERCUTANEOUS TRANSLUMINAL CORONARY ANGIOPLASTY History of Present Illness: is a 72 year old male.had [place] last week, underwent Cath, admitted for rehabilitation. - Review of Systems Constitutional: Weakness, No Fever, No Chills Eyes: No Symptoms Ears, Nose, & Throat: No Symptoms Respiratory: No Cough, No Short Of Breath Cardiac: No Chest Pain, No Edema, No Syncope Abdominal/Gastrointestinal: No Abdominal Pain, No Nausea, No Vomiting, No Diarrhea Genitourinary Symptoms: No Dysuria Musculoskeletal: No Back Pain, No Neck Pain Skin: No Rash Neurological: No Dizziness, No Focal Weakness, No Sensory Changes Psychological: No Symptoms Endocrine: No Symptoms Hematologic/Lymphatic: No Symptoms Immunological/Allergic: No Symptoms Medications & Allergies Home Medications: Home Medication List Acetaminophen [Tylenol] 325 mg PO Q4HPRN PRN 04/23/18 [History Confirmed ] Aspirin EC 81 mg [Ecotrin 81 mg] 81 mg PO DAILY 04/23/18 [History Confirmed 04/23/18] Calcium Carbonate/Vitamin D3 [Os-Srikanth 500+D3 Caplet] 2 tab PO BID 04/23/18 [ History Confirmed 04/23/18] Carvedilol 3.125 mg [Coreg 3.125 MG] 3.125 mg PO BID 04/23/18 [History Confirmed 04/23/18] Docusate Sodium [Colace] 100 mg PO BID 04/23/18 [History Confirmed 04/23/18] Fluticasone Propionate [Flonase NASAL] 2 inh NS DAILY 04/23/18 [History Confirmed 04/23/18] Lidocaine 1 each TP HS 04/23/18 [History Confirmed 04/23/18] Memantine HCl 5 mg [Namenda 5 MG] 5 mg PO BID 04/23/18 [History Confirmed 04/23/18] Menthol [Bengay] 85 gm TP TIDPRN PRN 04/23/18 [History Confirmed 04/23/18] Metformin HCl [Fortamet] 500 mg PO BID 04/23/18 [History Confirmed 04/23/18] Nitroglycerin 0.4 mg Tablet [Nitrostat 0.4 MG Tablet] 0.4 mg SL UD [History Confirmed 04/23/18] Sacubitril/Valsartan [Entresto 24 mg-26 mg Tablet] 0.5 tab PO BID 04/23/18 [ History Confirmed 04/23/18] Ticagrelor [Brilinta] 90 mg PO BID 04/23/18 [History Confirmed 04/23/18] Allergies/Adverse Reactions: Allergies Allergy/AdvReac Type Severity Reaction Status Date / Time Cuskaei-Zqr-Gwv Reductase Allergy Verified 04/23/18 16:28 Inhibitor - Past Medical History Past Medical History: Yes Neurological History: No Pertinent History ENT History: No Pertinent History Cardiac History: Hypertension, Myocardial Infarction ([place]) Respiratory History: No Pertinent History Endocrine Medical History: Diabetes Type II Musculoskelatal History: Osteoarthritis GI Medical History: No Pertinent History History: No Pertinent History Pyscho-Social History: No Pertinent History Male Reproductive Disorders: No Pertinent History Comment: lung nodules - Past Surgical History Past Surgical History: Yes Neuro Surgical History: No Pertinent History Cardiac History: Cardiac Catheterization, Cardiac Stent Respiratory Surgery: No Pertinent History GI Surgical History: Cholecystectomy, Hernia Repair Genitourinary Surgical Hx: No Pertinent History Musculskeletal Surgical Hx: Orthopedic Surgery Male Surgical History: No Pertinent History Other Surgical History: bilat roator cuff repair, surgery on nose for snoring - Social History Smoking Status: Former smoker Exposure to second hand smoke: No Alcohol: None Drug Use: none - Physical Exam Vital Signs: Vital Signs - 24 hr Temp Pulse Resp BP Pulse Ox 04/23/18 15:27 97.7 F 98 H 20 119/68 94 L 04/23/18 15:23 94 L 04/23/18 14:35 97.7 F 98 H 18 119/68 95 General Appearance: no apparent distress, alert Neurologic Exam: alert, oriented x 3, cooperative, normal mood/affect, nml cerebellar function, nml station & gait, sensation nml, No motor deficits Eye Exam: PERRL/EOMI, eyes nml inspection Ears, Nose, Throat Exam: normal ENT inspection, TMs normal, pharynx normal, moist mucous membranes Neck Exam: normal inspection, non-tender, supple, full range of motion Respiratory Exam: normal breath sounds, lungs clear, No respiratory distress Cardiovascular Exam: regular rate/rhythm, normal heart sounds, normal peripheral pulses Gastrointestinal/Abdomen Exam: soft, normal bowel sounds, No tenderness, No mass Back Exam: normal inspection, normal range of motion, No CVA tenderness, No vertebral tenderness Extremity Exam: normal inspection, normal range of motion, pelvis stable Skin Exam: normal color, warm, dry, No rash Lymphatic Exam: No adenopathy Assessment/Plan (1) Debilitated patient Current Visit: Yes Status: Acute Code(s): R53.81 - OTHER MALAISE (2) STEMI (ST elevation myocardial infarction) Current Visit: No Status: Acute Code(s): I21.3 - ST ELEVATION (STEMI) MYOCARDIAL INFARCTION OF [facility] SITE (3) Diabetes type 2, controlled Current Visit: No Status: Chronic Code(s): E11.9 - TYPE 2 DIABETES MELLITUS WITHOUT COMPLICATIONS
[2018-04-23] MEDS: Glucophage 500 MG PO SCH (17:26)
[2018-04-23] MEDS: TYLENOL 325 MG PO PRN (17:26)
[2018-04-23] MEDS: ENTRESTO 49 MG-51 MG TABLET PO SCH (21:51)
[2018-04-23] MEDS: Colace 100 MG PO SCH (21:51)
[2018-04-23] MEDS: Namenda 5 MG PO SCH (21:51)
[2018-04-23] MEDS: Calcium 500MG W/Vit D Tablet PO SCH (21:51)
[2018-04-23] MEDS: Coreg 3.125 MG PO SCH (21:51)
[2018-04-23] MEDS: Lidoderm Patch 5% TP SCH (21:52)
[2018-04-23] MEDS: Ambien 5 MG Tablet PO SCH (21:55)
[2018-04-23] MEDS ORDERED: CALCIUM CARBONATE PO SCH (22:00)
[2018-04-23] MEDS ORDERED: VALSARTAN PO SCH (22:00)
[2018-04-23] MEDS ORDERED: VITAMIN D3 PO SCH (22:00)
[2018-04-23] MEDS ORDERED: SACUBITRIL PO SCH (22:00)
[2018-04-23] MEDS ORDERED: NON-FORMULARY ITEM (Ticagrelor [Brilinta] 90 MG) PO SCH (22:00)
[2018-04-24] MEDS: Glucophage 500 MG PO SCH ×2 (08:23→16:53)
[2018-04-24] MEDS: ENTRESTO 49 MG-51 MG TABLET PO SCH ×2 (09:06→21:28)
[2018-04-24] MEDS: Calcium 500MG W/Vit D Tablet PO SCH ×2 (09:06→21:27)
[2018-04-24] MEDS: ECOTRIN 81 MG PO SCH (09:06)
[2018-04-24] MEDS: Namenda 5 MG PO SCH ×2 (09:06→21:27)
[2018-04-24] MEDS: Coreg 3.125 MG PO SCH ×2 (09:06→21:27)
[2018-04-24] MEDS: Colace 100 MG PO SCH ×2 (09:06→21:27)
[2018-04-24] MEDS: Flonase NASAL NS SCH (09:07)
[2018-04-24] MEDS ORDERED: Aplisol ID SCH (10:00)
--- NOTE | 2018-04-24 12:14 | PCM.NOTE ---
Date and Time: 04/24/18 1212 Subjective Assessment: doing ok - Review of Systems Constitutional: No Fever, No Chills Eyes: No Symptoms Ears, Nose, & Throat: No Symptoms Respiratory: No Cough, No Short Of Breath Cardiac: No Chest Pain, No Edema, No Syncope Abdominal/Gastrointestinal: No Abdominal Pain, No Nausea, No Vomiting, No Diarrhea Genitourinary Symptoms: No Dysuria Musculoskeletal: No Back Pain, No Neck Pain Skin: No Rash Neurological: No Dizziness, No Focal Weakness, No Sensory Changes Psychological: No Symptoms Endocrine: No Symptoms Hematologic/Lymphatic: No Symptoms Immunological/Allergic: No Symptoms Objective Exam General Appearance: no apparent distress, alert Neurologic Exam: alert, oriented x 3, cooperative, normal mood/affect, nml cerebellar function, sensation nml, No motor deficits Skin Exam: normal color, warm, dry Eye Exam: PERRL, EOMI, eyes nml inspection Ears, Nose, Throat Exam: normal ENT inspection, pharynx normal, moist mucous membranes Neck Exam: normal inspection, non-tender, supple, full range of motion Respiratory Exam: normal breath sounds, lungs clear, No respiratory distress Cardiovascular Exam: regular rate/rhythm, normal heart sounds Gastrointestinal/Abdomen Exam: soft, No tenderness, No mass Extremity Exam: normal inspection, normal range of motion Back Exam: normal inspection, normal range of motion, No CVA tenderness, No vertebral tenderness Male Genitalia Exam: deferred Rectal Exam: deferred OBJECTIVE DATA Vital Signs: Vital Signs - 24 hr Temp Pulse Resp BP Pulse Ox 04/24/18 11:54 97.6 F 96 H 20 88/57 95 04/24/18 07:14 97.6 F 99 H 21 113/64 94 L 04/24/18 02:40 128/69 04/23/18 20:15 92 L 04/23/18 20:00 98/57 04/23/18 19:53 98.0 F 103 H 16 93/57 96 04/23/18 15:27 97.7 F 98 H 20 119/68 94 L 04/23/18 15:23 94 L 04/23/18 14:35 97.7 F 98 H 18 119/68 95 Pain Assessment - Last Documented Pain Intensity 4 Pain Scale Used 0-10 Pain Scale Intake and Output: Intake & Output 04/22/18 04/23/18 04/24/18 04/25/18 11:59 11:59 11:59 11:59 Intake Total 960 Balance 960 Weight 104.3 kg Lab Results: Accuchecks Date 04/24/18 Date 04/23/18 Time 07:30 Time 22:00 Accucheck Value: 173 Accucheck Value: 153 Accucheck Value: 157 Lab Results-Last 24 Hours 04/24/18 Range/Units 05:15 Hemoglobin A1c 6.06 H (4.5-6.0) % Multi-Disciplinary Progress Notes: Multi-Disciplinary Progress Notes 04/24/18 10:04 Pharmacy Note by Del Mijares Patient not able to bring own Brilinta from home. We will substitute Plavix 75mg po daily while in swing bed. Initialized on 04/24/18 10:04 - END OF NOTE Assessment/Plan (1) Debilitated patient Current Visit: Yes Status: Acute Assessment & Plan: improving Code(s): R53.81 - OTHER MALAISE (2) STEMI (ST elevation myocardial infarction) Current Visit: No Status: Acute Qualifiers: Involved coronary artery: LAD coronary artery Qualified Code(s): I21.02 - ST elevation (STEMI) myocardial infarction involving left anterior descending coronary artery Code(s): I21.3 - ST ELEVATION (STEMI) MYOCARDIAL INFARCTION OF [facility] SITE (3) Diabetes type 2, controlled Current Visit: No Status: Chronic Qualifiers: Diabetes mellitus termite treater helper insulin use: without termite treater helper use Diabetes mellitus complication status: with unspecified complications Qualified Code(s) : E11.8 - Type 2 diabetes mellitus with unspecified complications Code(s): E11.9 - TYPE 2 DIABETES MELLITUS WITHOUT COMPLICATIONS
[2018-04-24] MEDS: PLAVIX 75 MG Tablet PO SCH (12:18)
[2018-04-24] MEDS: TYLENOL 325 MG PO PRN (15:35)
[2018-04-24] MEDS ORDERED: Aplisol ID ONE (16:00)
[2018-04-24] MEDS: Benadryl Itch Stopping Crm TP SCH ×2 (16:54→21:27)
[2018-04-24] MEDS: Lidoderm Patch 5% TP SCH (22:35)
[2018-04-24] MEDS: Ambien 5 MG Tablet PO SCH (23:26)
[2018-04-25] MEDS: Glucophage 500 MG PO SCH ×2 (08:03→17:24)
[2018-04-25] MEDS: ECOTRIN 81 MG PO SCH (09:46)
[2018-04-25] MEDS: Calcium 500MG W/Vit D Tablet PO SCH ×2 (09:46→21:19)
[2018-04-25] MEDS: PLAVIX 75 MG Tablet PO SCH (09:46)
[2018-04-25] MEDS: TYLENOL 325 MG PO PRN (09:46)
[2018-04-25] MEDS: Namenda 5 MG PO SCH ×2 (09:46→21:21)
[2018-04-25] MEDS: Colace 100 MG PO SCH ×2 (09:46→21:19)
[2018-04-25] MEDS: ENTRESTO 49 MG-51 MG TABLET PO SCH ×2 (09:47→21:19)
[2018-04-25] MEDS: Coreg 3.125 MG PO SCH ×2 (09:47→21:18)
[2018-04-25] MEDS: Flonase NASAL NS SCH (09:47)
[2018-04-25] MEDS: Benadryl Itch Stopping Crm TP SCH ×3 (09:49→21:19)
--- NOTE | 2018-04-25 13:22 | PCM.NOTE ---
Date and Time: 04/25/18 1321 Subjective Assessment: doing ok - Review of Systems Constitutional: No Fever, No Chills Eyes: No Symptoms Ears, Nose, & Throat: No Symptoms Respiratory: No Cough, No Short Of Breath Cardiac: No Chest Pain, No Edema, No Syncope Abdominal/Gastrointestinal: No Abdominal Pain, No Nausea, No Vomiting, No Diarrhea Genitourinary Symptoms: No Dysuria Musculoskeletal: No Back Pain, No Neck Pain Skin: No Rash Neurological: No Dizziness, No Focal Weakness, No Sensory Changes Psychological: No Symptoms Endocrine: No Symptoms Hematologic/Lymphatic: No Symptoms Immunological/Allergic: No Symptoms OBJECTIVE DATA Vital Signs: Vital Signs - 24 hr Temp Pulse Resp BP Pulse Ox 04/25/18 07:00 97.8 F 98 H 17 137/73 94 L 04/24/18 20:44 93 L 04/24/18 19:49 97.9 F 91 H 18 111/58 96 Pain Assessment - Last Documented Pain Intensity 0 Pain Scale Used 0-10 Pain Scale Intake and Output: Intake & Output 04/23/18 04/24/18 04/25/18 04/26/18 11:59 11:59 11:59 11:59 Intake Total 960 240 Balance 960 240 Weight 104.3 kg Lab Results: Accuchecks Date 04/25/18 Date 04/25/18 Date 04/24/18 Time 11:30 Time 07:00 Time 16:30 Accucheck Value: 128 Accucheck Value: 149 Accucheck Value: 156 Accucheck Value: 168 Assessment/Plan (1) Debilitated patient Current Visit: Yes Status: Acute Code(s): R53.81 - OTHER MALAISE (2) STEMI (ST elevation myocardial infarction) Current Visit: No Status: Acute Qualifiers: Involved coronary artery: LAD coronary artery Qualified Code(s): I21.02 - ST elevation (STEMI) myocardial infarction involving left anterior descending coronary artery Code(s): I21.3 - ST ELEVATION (STEMI) MYOCARDIAL INFARCTION OF [facility] SITE (3) Diabetes type 2, controlled Current Visit: No Status: Chronic Qualifiers: Diabetes mellitus oil 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
[2018-04-25] MEDS: Ambien 5 MG Tablet PO SCH (21:19)
[2018-04-25] MEDS: Lidoderm Patch 5% TP SCH (21:20)
[2018-04-26] MEDS: Glucophage 500 MG PO SCH ×2 (07:30→16:44)
[2018-04-26] MEDS: Benadryl Itch Stopping Crm TP SCH ×3 (07:32→22:49)
[2018-04-26] MEDS ORDERED: CORTISONE 1% CREAM TP PRN (08:36)
[2018-04-26] MEDS ORDERED: BENADRYL 25 MG CAPSULE PO PRN (09:21)
[2018-04-26] MEDS: Calcium 500MG W/Vit D Tablet PO SCH ×2 (09:24→22:37)
[2018-04-26] MEDS: ECOTRIN 81 MG PO SCH (09:25)
[2018-04-26] MEDS: Colace 100 MG PO SCH ×2 (09:25→22:37)
[2018-04-26] MEDS: Coreg 3.125 MG PO SCH ×2 (09:25→22:37)
[2018-04-26] MEDS: Namenda 5 MG PO SCH ×2 (09:26→22:40)
[2018-04-26] MEDS: PLAVIX 75 MG Tablet PO SCH (09:26)
[2018-04-26] MEDS: ENTRESTO 49 MG-51 MG TABLET PO SCH ×2 (09:27→22:37)
[2018-04-26] MEDS: Flonase NASAL NS SCH (09:35)
--- NOTE | 2018-04-26 13:13 | PCM.NOTE ---
Date and Time: 04/26/18 1312 Subjective Assessment: doing ok - Review of Systems Constitutional: No Fever, No Chills Eyes: No Symptoms Ears, Nose, & Throat: No Symptoms Respiratory: No Cough, No Short Of Breath Cardiac: No Chest Pain, No Edema, No Syncope Abdominal/Gastrointestinal: No Abdominal Pain, No Nausea, No Vomiting, No Diarrhea Genitourinary Symptoms: No Dysuria Musculoskeletal: No Back Pain, No Neck Pain Skin: No Rash Neurological: No Dizziness, No Focal Weakness, No Sensory Changes Psychological: No Symptoms Endocrine: No Symptoms Hematologic/Lymphatic: No Symptoms Immunological/Allergic: No Symptoms Objective Exam General Appearance: no apparent distress, alert Neurologic Exam: alert, oriented x 3, cooperative, normal mood/affect, nml cerebellar function, sensation nml, No motor deficits Skin Exam: normal color, warm, dry Eye Exam: PERRL, EOMI, eyes nml inspection Ears, Nose, Throat Exam: normal ENT inspection, pharynx normal, moist mucous membranes Neck Exam: normal inspection, non-tender, supple, full range of motion Respiratory Exam: normal breath sounds, lungs clear, No respiratory distress Cardiovascular Exam: regular rate/rhythm, normal heart sounds Gastrointestinal/Abdomen Exam: soft, No tenderness, No mass Extremity Exam: normal inspection, normal range of motion Back Exam: normal inspection, normal range of motion, No CVA tenderness, No vertebral tenderness Male Genitalia Exam: deferred Rectal Exam: deferred OBJECTIVE DATA Vital Signs: Vital Signs - 24 hr Temp Pulse Resp BP Pulse Ox 04/26/18 11:36 97.7 F 86 23 107/64 94 L 04/26/18 07:16 97.7 F 80 20 120/68 98 04/25/18 20:06 97.6 F 98 H 18 118/61 96 04/25/18 19:00 97.6 F 98 H 18 118/61 96 Pain Assessment - Last Documented Pain Intensity 0 Pain Scale Used 0-10 Pain Scale Intake and Output: Intake & Output 04/24/18 04/25/18 04/26/18 04/27/18 11:59 11:59 11:59 11:59 Intake Total 960 240 720 Output Total 200 Balance 960 240 520 Weight 104.3 kg 104.3 kg Lab Results: Accuchecks Date 04/26/18 Date 04/26/18 Date 02/14/04/25/18 Time 11:30 Time 07:30 Time 22:00 Time 16:30 Accucheck Value: 127 Accucheck Value: 158 Accucheck Value: 170 Accucheck Value: 156 Assessment/Plan (1) Debilitated patient Current Visit: Yes Status: Acute Assessment & Plan: Last Vital Signs Temp 97.7 F 04/26/18 11:36 Pulse 86 04/26/18 11:36 Resp 23 04/26/18 11:36 BP 107/64 04/26/18 11:36 Pulse Ox 94 L 04/26/18 11:36 Allergies Dmfzrxk-Owj-Kke Reductase Inhibitor Allergy (Verified 04/23/18 16:28) Active Medications Acetaminophen (Tylenol 325 Mg) 325 mg PO Q4HPRN PRN PRN Reason: PAIN Stop: 05/23/18 16:42 Last Admin: 04/25/18 09:46 Dose: 325 mg Aspirin (Ecotrin 81 Mg) [address] [facility] Stop: 05/24/18 09:59 Last Admin: 04/26/18 09:25 Dose: 81 mg Calcium Carbonate (Calcium 500mg W/Vit D Tablet) 2 tab PO BID [facility] Stop: 05/23/18 21:59 Last Admin: 04/26/18 09:24 Dose: 2 tab Carvedilol (Coreg 3.125 Mg) 3.[address] [facility] Stop: 05/23/18 21:59 Last Admin: 04/26/18 09:25 Dose: 3.125 mg Clopidogrel Bisulfate (Plavix 75 Mg Tablet) [address] [facility] Stop: 05/24/18 09:59 Last Admin: 04/26/18 09:26 Dose: 75 mg Diphenhydramine HCl (Benadryl 25 Mg Capsule) 25 mg PO Q6H PRN PRN PRN Reason: ITCHING Stop: 05/26/18 09:20 Last Admin: 04/26/18 09:25 Dose: 25 mg Docusate Sodium (Colace 100 Mg) [address] [facility] Stop: 05/23/18 21:59 Last Admin: 04/26/18 09:25 Dose: 100 mg Fluticasone Propionate (Flonase Nasal) [address] [facility] Stop: 05/24/18 09:59 Last Admin: 02/15/19 09:35 Dose: 0.2 gm Hydrocortisone (Cortisone 1% Cream) 0 gm TP QID PRN PRN PRN Reason: ITCHING Stop: 05/26/18 08:35 Last Admin: 04/26/18 08:39 Dose: 1 gm Lidocaine (Lidoderm Patch 5%) 1 patch TP HS [facility] Stop: 05/23/18 21:59 Last Admin: 04/25/18 21:20 Dose: Not Given Memantine (Namenda 5 Mg) 5 mg PO BID [facility] Stop: 05/23/18 21:59 Last Admin: 04/26/18 09:26 Dose: 5 mg Metformin HCl (Glucophage 500 Mg) 500 mg PO BIDWM [facility] Stop: 05/23/18 16:59 Last Admin: 04/26/18 07:30 Dose: 500 mg Methyl Salicylate (Pain Relieving Rub) 0 gm TOP TID PRN PRN Stop: 05/23/18 16:52 Nitroglycerin (Nitrostat 0.4 Mg Tablet) 0.4 mg SL PRN PRN Stop: 05/23/18 16:44 Non-Formulary Medication (Remove Patch Reminder) [address] [facility] Stop: 05/24/18 09:59 Last Admin: 04/26/18 10:00 Dose: Not Given Sacubitril/Valsartan (Entresto 49 Mg-51 Mg Tablet) 0.25 tablet PO BID [facility] Stop: 05/23/18 21:59 Last Admin: 04/26/18 09:27 Dose: 0.25 tablet Tuberculin PPD (Aplisol) [address] [facility] Stop: 05/04/18 10:01 Zinc Acetate/Diphenhydramine (Benadryl Itch Stopping Crm) 0.5 gm TP TID [facility] Stop: 05/24/18 16:29 Last Admin: 04/26/18 07:32 Dose: 0.5 gm Zolpidem Tartrate (Ambien 5 Mg Tablet) 5 mg PO HS [facility] Stop: 05/23/18 21:59 Last Admin: 04/25/18 21:19 Dose: 5 mg Intake & Output 04/26/18 04/27/18 11:59 11:59 Intake Total 720 Output Total 200 Balance 520 Weight 104.3 kg Orders 04/26/18 08:36 Hydrocortisone 1% Cream [Cortisone 1% Cream] 0 gm TP QID PRN PRN 04/26/18 09:21 Diphenhydramine HCl 25 mg [Benadryl 25 mg Capsule] 25 mg PO Q6H PRN PRN 04/27/18 10:00 Miscellaneous Nursing Order UD 04/30/18 05:00 Weight,Daily Q7D 05/04/18 10:00 Tuberculin,Purif.prot.deriv. [Aplisol] 5 unit ID DAILY 05/07/18 05:00 BMP Q14D Code(s): R53.81 - OTHER MALAISE (2) STEMI (ST elevation myocardial infarction) Current Visit: No Status: Acute Qualifiers: Involved coronary artery: LAD coronary artery Qualified Code(s): I21.02 - ST elevation (STEMI) myocardial infarction involving left anterior descending coronary artery Code(s): I21.3 - ST ELEVATION (STEMI) MYOCARDIAL INFARCTION OF [facility] SITE (3) Diabetes type 2, controlled Current Visit: No Status: Chronic Qualifiers: Diabetes mellitus buttermaker insulin use: without buttermaker use Diabetes mellitus complication status: with unspecified complications Qualified Code(s) : E11.8 - Type 2 diabetes mellitus with unspecified complications Code(s): E11.9 - TYPE 2 DIABETES MELLITUS WITHOUT COMPLICATIONS
[2018-04-26] MEDS: TYLENOL 325 MG PO PRN (17:22)
[2018-04-26] MEDS: Ambien 5 MG Tablet PO SCH (22:36)
[2018-04-26] MEDS: Lidoderm Patch 5% TP SCH (22:45)
[2018-04-27] MEDS: Glucophage 500 MG PO SCH ×2 (08:03→16:57)
[2018-04-27] MEDS: PLAVIX 75 MG Tablet PO SCH (09:20)
[2018-04-27] MEDS: ECOTRIN 81 MG PO SCH (09:20)
[2018-04-27] MEDS: Flonase NASAL NS SCH (09:21)
[2018-04-27] MEDS: Colace 100 MG PO SCH ×2 (09:21→21:15)
[2018-04-27] MEDS: ENTRESTO 49 MG-51 MG TABLET PO SCH ×2 (09:21→21:15)
[2018-04-27] MEDS: Calcium 500MG W/Vit D Tablet PO SCH ×2 (09:21→21:15)
[2018-04-27] MEDS: Coreg 3.125 MG PO SCH ×2 (09:21→21:15)
[2018-04-27] MEDS: Namenda 5 MG PO SCH ×2 (09:21→21:16)
[2018-04-27] MEDS: Benadryl Itch Stopping Crm TP SCH ×3 (09:22→21:28)
--- NOTE | 2018-04-27 12:13 | PCM.NOTE ---
Date and Time: 04/27/18 1212 Subjective Assessment: doing ok - Review of Systems All Other Systems: Reviewed and Negative Objective Exam General Appearance: no apparent distress, alert Neurologic Exam: alert, oriented x 3, cooperative, normal mood/affect, nml cerebellar function, sensation nml, No motor deficits Skin Exam: normal color, warm, dry Eye Exam: PERRL, EOMI, eyes nml inspection Ears, Nose, Throat Exam: normal ENT inspection, pharynx normal, moist mucous membranes Neck Exam: normal inspection, non-tender, supple, full range of motion Respiratory Exam: normal breath sounds, lungs clear, No respiratory distress Cardiovascular Exam: regular rate/rhythm, normal heart sounds Gastrointestinal/Abdomen Exam: soft, No tenderness, No mass Extremity Exam: normal inspection, normal range of motion Back Exam: normal inspection, normal range of motion, No CVA tenderness, No vertebral tenderness Male Genitalia Exam: deferred Rectal Exam: deferred OBJECTIVE DATA Vital Signs: Vital Signs - 24 hr Temp Pulse Resp BP Pulse Ox 04/27/18 07:00 97.7 F 87 18 115/74 92 L 04/26/18 21:40 94 L 04/26/18 19:17 98.0 F 94 H 20 109/64 96 Pain Assessment - Last Documented Pain Intensity 5 Pain Scale Used 0-10 Pain Scale Intake and Output: Intake & Output 04/25/18 04/26/18 04/27/18 04/28/18 11:59 11:59 11:59 11:59 Intake Total 240 720 660 Output Total 200 Balance 240 520 660 Weight 104.3 kg Lab Results: Accuchecks Date 04/27/1804/27/18 Date 04/26/18 Time 11:30 Time 07:30 Time 16:11 Accucheck Value: 147 Accucheck Value: 143 Accucheck Value: 130 Accucheck Value: 127 Assessment/Plan (1) Debilitated patient Current Visit: Yes Status: Acute Assessment & Plan: Last Vital Signs Temp 97.7 F 04/27/18 07:00 Pulse 87 04/27/18 07:00 Resp 18 04/27/18 07:00 BP 115/74 04/27/18 07:00 Pulse Ox 92 L 04/27/18 07:00 Allergies Uesgltu-Kwx-Gme Reductase Inhibitor Allergy (Verified 04/23/18 16:28) Active Medications Acetaminophen (Tylenol 325 Mg) 325 mg PO Q4HPRN PRN PRN Reason: PAIN Stop: 05/23/18 16:42 Last Admin: 04/26/18 17:22 Dose: 325 mg Aspirin (Ecotrin 81 Mg) 81 mg PO DAILY [facility] Stop: 05/24/18 09:59 Last Admin: 04/27/18 09:20 Dose: 81 mg Calcium Carbonate (Calcium 500mg W/Vit D Tablet) 2 tab PO BID [facility] Stop: 05/23/18 21:59 Last Admin: 04/27/18 09:21 Dose: 2 tab Carvedilol (Coreg 3.125 Mg) 3.125 mg PO BID [facility] Stop: 05/23/18 21:59 Last Admin: 04/27/18 09:21 Dose: 3.125 mg Clopidogrel Bisulfate (Plavix 75 Mg Tablet) 75 mg PO DAILY [facility] Stop: 05/24/18 09:59 Last Admin: 04/27/18 09:20 Dose: 75 mg Diphenhydramine HCl (Benadryl 25 Mg Capsule) 25 mg PO Q6H PRN PRN PRN Reason: ITCHING Stop: 05/26/18 09:20 Last Admin: 04/26/18 09:25 Dose: 25 mg Docusate Sodium (Colace 100 Mg) 100 mg PO BID [facility] Stop: 05/23/18 21:59 Last Admin: 04/27/18 09:21 Dose: 100 mg Fluticasone Propionate (Flonase Nasal) 0 gm NS DAILY [facility] Stop: 05/24/18 09:59 Last Admin: 04/27/18 09:21 Dose: 1 gm Hydrocortisone (Cortisone 1% Cream) 0 gm TP QID PRN PRN PRN Reason: ITCHING Stop: 05/26/18 08:35 Last Admin: 04/26/18 08:39 Dose: 1 gm Lidocaine (Lidoderm Patch 5%) 1 patch TP HS [facility] Stop: 05/23/18 21:59 Last Admin: 04/26/18 22:45 Dose: 1 patch Memantine (Namenda 5 Mg) 5 mg PO BID [facility] Stop: 05/23/18 21:59 Last Admin: 04/27/18 09:21 Dose: 5 mg Metformin HCl (Glucophage 500 Mg) 500 mg PO BIDWM [facility] Stop: 05/23/18 16:59 Last Admin: 04/27/18 08:03 Dose: 500 mg Methyl Salicylate (Pain Relieving Rub) 0 gm TOP TID PRN PRN Stop: 05/23/18 16:52 Nitroglycerin (Nitrostat 0.4 Mg Tablet) 0.4 mg SL PRN PRN Stop: 05/23/18 16:44 Non-Formulary Medication (Remove Patch Reminder) 1 each TOP QAM [facility] Stop: 05/24/18 09:59 Last Admin: 04/27/18 09:22 Dose: 1 each Sacubitril/Valsartan (Entresto 49 Mg-51 Mg Tablet) 0.25 tablet PO BID [facility] Stop: 05/23/18 21:59 Last Admin: 04/27/18 09:21 Dose: 0.25 tablet Tuberculin PPD (Aplisol) 5 unit ID DAILY [facility] Stop: 05/04/18 10:01 Zinc Acetate/Diphenhydramine (Benadryl Itch Stopping Crm) 0.5 gm TP TID [facility] Stop: 05/24/18 16:29 Last Admin: 04/27/18 09:22 Dose: 0.5 gm Zolpidem Tartrate (Ambien 5 Mg Tablet) 5 mg PO HS [facility] Stop: 05/23/18 21:59 Last Admin: 04/26/18 22:36 Dose: 5 mg Intake & Output 04/27/18 04/28/18 11:59 11:59 Intake Total 660 Balance 660 Orders 04/26/18 16:26 Ambulate Patient BID 04/26/18 16:27 Miscellaneous Nursing Order Q12H 04/27/18 10:00 Miscellaneous Nursing Order UD 04/30/18 05:00 Weight,Daily Q7D 05/04/18 10:00 Tuberculin,Purif.prot.deriv. 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
[2018-04-27] MEDS: TYLENOL 325 MG PO PRN ×2 (12:40→18:41)
[2018-04-27] MEDS: Ambien 5 MG Tablet PO SCH (21:14)
[2018-04-27] MEDS: Lidoderm Patch 5% TP SCH (21:19)
[2018-04-28] MEDS: Glucophage 500 MG PO SCH ×2 (07:22→16:34)
--- NOTE | 2018-04-28 07:58 | PCM.NOTE ---
Date and Time: 04/28/18 0757 Subjective Assessment: doing ok - Review of Systems Constitutional: No Fever, No Chills Eyes: No Symptoms Ears, Nose, & Throat: No Symptoms Respiratory: No Cough, No Short Of Breath Cardiac: No Chest Pain, No Edema, No Syncope Abdominal/Gastrointestinal: No Abdominal Pain, No Nausea, No Vomiting, No Diarrhea Genitourinary Symptoms: No Dysuria Musculoskeletal: No Back Pain, No Neck Pain Skin: No Rash Neurological: No Dizziness, No Focal Weakness, No Sensory Changes Psychological: No Symptoms Endocrine: No Symptoms Hematologic/Lymphatic: No Symptoms Immunological/Allergic: No Symptoms Objective Exam General Appearance: no apparent distress, alert Neurologic Exam: alert, oriented x 3, cooperative, normal mood/affect, nml cerebellar function, sensation nml, No motor deficits Skin Exam: normal color, warm, dry Eye Exam: PERRL, EOMI, eyes nml inspection Ears, Nose, Throat Exam: normal ENT inspection, pharynx normal, moist mucous membranes Neck Exam: normal inspection, non-tender, supple, full range of motion Respiratory Exam: normal breath sounds, lungs clear, No respiratory distress Cardiovascular Exam: regular rate/rhythm, normal heart sounds Gastrointestinal/Abdomen Exam: soft, No tenderness, No mass Extremity Exam: normal inspection, normal range of motion Back Exam: normal inspection, normal range of motion, No CVA tenderness, No vertebral tenderness Male Genitalia Exam: deferred Rectal Exam: deferred OBJECTIVE DATA Vital Signs: Vital Signs - 24 hr Temp Pulse Resp BP Pulse Ox 04/28/18 07:25 98 F 88 20 136/80 95 04/27/18 20:42 96 04/27/18 19:10 98.4 F 97 H 20 142/76 96 Pain Assessment - Last Documented Pain Intensity 4 Pain Scale Used 0-10 Pain Scale Intake and Output: Intake & Output 04/25/18 04/26/18 04/27/18 04/28/18 11:59 11:59 11:59 11:59 Intake Total 240 720 660 440 Output Total 200 Balance 240 520 660 440 Weight 104.3 kg Lab Results: Accuchecks Date 04/28/18 Date 04/27/18 Date 04/27/18 Time 07:30 Time 16:30 Time 11:30 Accucheck Value: 139 Accucheck Value: 144 Accucheck Value: 170 Accucheck Value: 147 Assessment/Plan (1) Debilitated patient Current Visit: Yes Status: Acute Code(s): R53.81 - OTHER MALAISE (2) STEMI (ST elevation myocardial infarction) Current Visit: No Status: Acute Qualifiers: Involved coronary artery: LAD coronary artery Qualified Code(s): I21.02 - ST elevation (STEMI) myocardial infarction involving left anterior descending coronary artery Code(s): I21.3 - ST ELEVATION (STEMI) MYOCARDIAL INFARCTION OF [facility] SITE (3) Diabetes type 2, controlled Current Visit: No Status: Chronic Qualifiers: Diabetes mellitus aircraft 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
[2018-04-28] MEDS: Coreg 3.125 MG PO SCH ×2 (09:34→22:56)
[2018-04-28] MEDS: Colace 100 MG PO SCH ×2 (09:34→22:56)
[2018-04-28] MEDS: Namenda 5 MG PO SCH ×2 (09:34→22:57)
[2018-04-28] MEDS: Calcium 500MG W/Vit D Tablet PO SCH ×2 (09:34→22:56)
[2018-04-28] MEDS: PLAVIX 75 MG Tablet PO SCH (09:35)
[2018-04-28] MEDS: ENTRESTO 49 MG-51 MG TABLET PO SCH ×2 (09:35→22:56)
[2018-04-28] MEDS: ECOTRIN 81 MG PO SCH (09:35)
[2018-04-28] MEDS: Benadryl Itch Stopping Crm TP SCH ×4 (09:35→23:10)
[2018-04-28] MEDS: Flonase NASAL NS SCH (09:39)
[2018-04-28] MEDS: TYLENOL 325 MG PO PRN ×3 (12:24→22:58)
[2018-04-28] MEDS: Ambien 5 MG Tablet PO SCH (22:56)
[2018-04-28] MEDS: Lidoderm Patch 5% TP SCH (23:05)
[2018-04-29] MEDS: TYLENOL 325 MG PO PRN ×3 (04:24→20:12)
[2018-04-29] MEDS: Glucophage 500 MG PO SCH ×2 (07:44→16:24)
[2018-04-29] MEDS: Benadryl Itch Stopping Crm TP SCH ×3 (09:25→21:04)
[2018-04-29] MEDS: Colace 100 MG PO SCH ×2 (09:27→21:04)
[2018-04-29] MEDS: Calcium 500MG W/Vit D Tablet PO SCH ×2 (09:27→21:04)
[2018-04-29] MEDS: Coreg 3.125 MG PO SCH ×2 (09:27→21:05)
[2018-04-29] MEDS: ENTRESTO 49 MG-51 MG TABLET PO SCH ×2 (09:28→21:05)
[2018-04-29] MEDS: Flonase NASAL NS SCH (09:29)
[2018-04-29] MEDS: Namenda 5 MG PO SCH ×2 (09:30→21:05)
[2018-04-29] MEDS: PLAVIX 75 MG Tablet PO SCH (09:30)
[2018-04-29] MEDS: Ambien 5 MG Tablet PO SCH (21:04)
[2018-04-29] MEDS: Lidoderm Patch 5% TP SCH (21:05)
[2018-04-30] MEDS: Glucophage 500 MG PO SCH ×2 (07:51→16:16)
[2018-04-30] MEDS: TYLENOL 325 MG PO PRN ×3 (07:51→20:29)
--- NOTE | 2018-04-30 08:49 | PCM.NOTE ---
Date and Time: 04/30/18 0840 Subjective Assessment: doing ok, - Review of Systems Constitutional: No Fever, No Chills Eyes: No Symptoms Ears, Nose, & Throat: No Symptoms Respiratory: No Cough, No Short Of Breath Cardiac: No Chest Pain, No Edema, No Syncope Abdominal/Gastrointestinal: No Abdominal Pain, No Nausea, No Vomiting, No Diarrhea Genitourinary Symptoms: No Dysuria Musculoskeletal: No Back Pain, No Neck Pain Skin: No Rash Neurological: No Dizziness, No Focal Weakness, No Sensory Changes Psychological: No Symptoms Endocrine: No Symptoms Hematologic/Lymphatic: No Symptoms Immunological/Allergic: No Symptoms Objective Exam General Appearance: no apparent distress, alert Neurologic Exam: alert, oriented x 3, cooperative, normal mood/affect, nml cerebellar function, sensation nml, No motor deficits Skin Exam: normal color, warm, dry Eye Exam: PERRL, EOMI, eyes nml inspection Ears, Nose, Throat Exam: normal ENT inspection, pharynx normal, moist mucous membranes Neck Exam: normal inspection, non-tender, supple, full range of motion Respiratory Exam: normal breath sounds, lungs clear, No respiratory distress Cardiovascular Exam: regular rate/rhythm, normal heart sounds Gastrointestinal/Abdomen Exam: soft, No tenderness, No mass Extremity Exam: normal inspection, normal range of motion Back Exam: normal inspection, normal range of motion, No CVA tenderness, No vertebral tenderness Male Genitalia Exam: deferred Rectal Exam: deferred OBJECTIVE DATA Vital Signs: Vital Signs - 24 hr Temp Pulse Resp BP Pulse Ox 04/30/18 07:00 97.7 F 93 H 16 110/75 96 04/29/18 19:00 97.7 F 100 H 20 115/71 95 Pain Assessment - Last Documented Pain Intensity 5 Pain Scale Used [facility] Intake and Output: Intake & Output 04/27/18 04/28/18 04/29/18 04/30/18 11:59 11:59 11:59 11:59 Intake Total 660 560 300 120 Balance 660 560 300 120 Weight 100.7 kg Lab Results: Accuchecks Date 04/30/18 Date 04/29/18 Date 04/29/18 Date 04/29/18 Time 07:52 Time 16:50 Time 11:30 Accucheck Value: 147 Accucheck Value: 148 Accucheck Value: 124 Accucheck Value: 146 Multi-Disciplinary Progress Notes: Multi-Disciplinary Progress Notes 04/29/18 11:12 Nutrition Note by [employer] F/u note: Cardiac diet con't with 50% po intake. No recent labs. accucheck today 153, no recent weight. Goals not met and ongoing. Will con't to monitor and f/u prn. TJOHN Guajardo Initialized on 04/29/18 11:12 - END OF NOTE Assessment/Plan (1) Debilitated patient Current Visit: Yes Status: Acute Assessment & Plan: Last Vital Signs Temp 97.7 F 04/30/18 07:00 Pulse 93 H 04/30/18 07:00 Resp 16 04/30/18 07:00 BP 110/75 04/30/18 07:00 Pulse Ox 96 04/30/18 07:00 Allergies [id number] Reductase Inhibitor Allergy (Verified 04/23/18 16:28) Active Medications Acetaminophen (Tylenol 325 Mg) 650 mg PO Q4HPRN PRN PRN Reason: PAIN Stop: 05/23/18 16:42 Last Admin: 04/30/18 07:51 Dose: 650 mg Aspirin (Ecotrin 81 Mg) 81 mg PO DAILY [facility] Stop: 05/24/18 09:59 Last Admin: 04/28/18 09:35 Dose: 81 mg Calcium Carbonate (Calcium 500mg W/Vit D Tablet) 2 tab PO BID MILANA Stop: 05/23/18 21:59 Last Admin: 04/29/18 21:04 Dose: 2 tab Carvedilol (Coreg 3.125 Mg) 3.125 mg PO BID MILANA Stop: 05/23/18 21:59 Last Admin: 04/29/18 21:05 Dose: 3.125 mg Clopidogrel Bisulfate (Plavix 75 Mg Tablet) 75 mg PO DAILY [facility] Stop: 05/24/18 09:59 Last Admin: 04/29/18 09:30 Dose: 75 mg Diphenhydramine HCl (Benadryl 25 Mg Capsule) 25 mg PO Q6H PRN PRN PRN Reason: ITCHING Stop: 05/26/18 09:20 Last Admin: 04/26/18 09:25 Dose: 25 mg Docusate Sodium (Colace 100 Mg) 100 mg PO BID MILANA Stop: 05/23/18 21:59 Last Admin: 04/29/18 21:04 Dose: 100 mg Fluticasone Propionate (Flonase Nasal) 0 gm NS DAILY [facility] Stop: 05/24/18 09:59 Last Admin: 04/29/18 09:29 Dose: 2 gm Hydrocortisone (Cortisone 1% Cream) 0 gm TP QID PRN PRN PRN Reason: ITCHING Stop: 05/26/18 08:35 Last Admin: 04/26/18 08:39 Dose: 1 gm Lidocaine (Lidoderm Patch 5%) 1 patch TP HS [facility] Stop: 05/23/18 21:59 Last Admin: 04/29/18 21:05 Dose: 1 patch Memantine (Namenda 5 Mg) 5 mg PO BID MLIANA Stop: 05/23/18 21:59 Last Admin: 04/29/18 21:05 Dose: 5 mg Metformin HCl (Glucophage 500 Mg) 500 mg PO BIDWM [facility] Stop: 05/23/18 16:59 Last Admin: 04/30/18 07:51 Dose: 500 mg Methyl Salicylate (Pain Relieving Rub) 0 gm TOP TID PRN PRN Stop: 05/23/18 16:52 Last Admin: 04/29/18 04:25 Dose: 1 gm Nitroglycerin (Nitrostat 0.4 Mg Tablet) 0.4 mg SL PRN PRN Stop: 05/23/18 16:44 Non-Formulary Medication (Remove Patch Reminder) 1 each TOP QAM [facility] Stop: 05/24/18 09:59 Last Admin: 04/30/18 04:12 Dose: 1 each Sacubitril/Valsartan (Entresto 49 Mg-51 Mg Tablet) 0.25 tablet PO BID MILANA Stop: 05/23/18 21:59 Last Admin: 04/29/18 21:05 Dose: 0.25 tablet Tuberculin PPD (Aplisol) 5 unit ID DAILY [facility] Stop: 05/04/18 10:01 Zinc Acetate/Diphenhydramine (Benadryl Itch Stopping Crm) 0.5 gm TP TID MILANA Stop: 05/24/18 16:29 Last Admin: 04/29/18 21:04 Dose: 0.5 gm Zolpidem Tartrate (Ambien 5 Mg Tablet) 5 mg PO HS MILANA Stop: 05/23/18 21:59 Last Admin: 04/29/18 21:04 Dose: 5 mg Intake & Output 04/29/18 04/30/18 11:59 11:59 Intake Total 300 120 Balance 300 120 Weight 100.7 kg Orders 04/30/18 05:00 Weight,Daily Q7D 05/04/18 10:00 Tuberculin,Purif.prot.deriv. [Aplisol] 5 unit ID DAILY 05/07/18 05:00 BMP Q14D Code(s): R53.81 - OTHER MALAISE (2) STEMI (ST elevation myocardial infarction) Current Visit: No Status: Acute Qualifiers: Involved coronary artery: LAD coronary artery Qualified Code(s): I21.02 - ST elevation (STEMI) myocardial infarction involving left anterior descending coronary artery Code(s): I21.3 - ST ELEVATION (STEMI) MYOCARDIAL INFARCTION OF [facility] SITE (3) Diabetes type 2, controlled Current Visit: No Status: Chronic Qualifiers: Diabetes mellitus retirement insulin use: without oysterman use Diabetes mellitus complication status: with unspecified complications Qualified Code(s) : E11.8 - Type 2 diabetes mellitus with unspecified complications Code(s): E11.9 - TYPE 2 DIABETES MELLITUS WITHOUT COMPLICATIONS
[2018-04-30] MEDS: Benadryl Itch Stopping Crm TP SCH ×3 (09:18→22:24)
[2018-04-30] MEDS: Calcium 500MG W/Vit D Tablet PO SCH ×2 (09:19→22:21)
[2018-04-30] MEDS: Colace 100 MG PO SCH ×2 (09:20→22:21)
[2018-04-30] MEDS: Coreg 3.125 MG PO SCH ×2 (09:20→22:22)
[2018-04-30] MEDS: ECOTRIN 81 MG PO SCH (09:21)
[2018-04-30] MEDS: ENTRESTO 49 MG-51 MG TABLET PO SCH ×2 (09:22→22:22)
[2018-04-30] MEDS: Flonase NASAL NS SCH (09:24)
[2018-04-30] MEDS: Namenda 5 MG PO SCH ×2 (09:25→22:20)
[2018-04-30] MEDS: PLAVIX 75 MG Tablet PO SCH (09:25)
[2018-04-30] MEDS: Ambien 5 MG Tablet PO SCH (22:21)
[2018-04-30] MEDS: Lidoderm Patch 5% TP SCH (22:24)
[2018-05-01] MEDS: Glucophage 500 MG PO SCH ×2 (08:06→16:25)
[2018-05-01] MEDS: TYLENOL 325 MG PO PRN (08:06)
[2018-05-01] MEDS: ENTRESTO 49 MG-51 MG TABLET PO SCH ×2 (09:56→21:59)
[2018-05-01] MEDS: Namenda 5 MG PO SCH ×2 (09:57→21:59)
[2018-05-01] MEDS: Calcium 500MG W/Vit D Tablet PO SCH ×2 (09:57→21:59)
[2018-05-01] MEDS: Flonase NASAL NS SCH (09:58)
[2018-05-01] MEDS: ECOTRIN 81 MG PO SCH (09:58)
[2018-05-01] MEDS: Colace 100 MG PO SCH ×2 (09:58→21:59)
[2018-05-01] MEDS: PLAVIX 75 MG Tablet PO SCH (09:58)
[2018-05-01] MEDS: Coreg 3.125 MG PO SCH ×2 (09:58→21:59)
[2018-05-01] MEDS: Benadryl Itch Stopping Crm TP SCH ×3 (10:03→22:00)
--- NOTE | 2018-05-01 12:24 | PCM.NOTE ---
Date and Time: 05/01/18 1217 Subjective Assessment: doing ok - Review of Systems Constitutional: No Fever, No Chills Eyes: No Symptoms Ears, Nose, & Throat: No Symptoms Respiratory: No Cough, No Short Of Breath Cardiac: No Chest Pain, No Edema, No Syncope Abdominal/Gastrointestinal: No Abdominal Pain, No Nausea, No Vomiting, No Diarrhea Genitourinary Symptoms: No Dysuria Musculoskeletal: No Back Pain, No Neck Pain Skin: No Rash Neurological: No Dizziness, No Focal Weakness, No Sensory Changes Psychological: No Symptoms Endocrine: No Symptoms Hematologic/Lymphatic: No Symptoms Immunological/Allergic: No Symptoms Objective Exam General Appearance: no apparent distress, alert Neurologic Exam: alert, oriented x 3, cooperative, normal mood/affect, nml cerebellar function, sensation nml, No motor deficits Skin Exam: normal color, warm, dry Eye Exam: PERRL, EOMI, eyes nml inspection Ears, Nose, Throat Exam: normal ENT inspection, pharynx normal, moist mucous membranes Neck Exam: normal inspection, non-tender, supple, full range of motion Respiratory Exam: normal breath sounds, lungs clear, No respiratory distress Cardiovascular Exam: regular rate/rhythm, normal heart sounds Gastrointestinal/Abdomen Exam: soft, No tenderness, No mass Extremity Exam: normal inspection, normal range of motion Back Exam: normal inspection, normal range of motion, No CVA tenderness, No vertebral tenderness Male Genitalia Exam: deferred Rectal Exam: deferred OBJECTIVE DATA Vital Signs: Vital Signs - 24 hr Temp Pulse Resp BP BP Pulse Ox 05/01/18 07:29 97.8 F 78 20 119/72 118/66 96 04/30/18 19:07 97.9 F 85 18 112/60 98 Pain Assessment - Last Documented Pain Intensity 3 Pain Scale Used 0-10 Pain Scale Intake and Output: Intake & Output 04/29/18 04/30/18 05/01/18 05/02/18 11:59 11:59 11:59 11:59 Intake Total 300 120 680 Balance 300 120 680 Weight 100.7 kg Lab Results: Accuchecks Date 05/01/18 Date 05/01/18 Date 04/30/18 Date 04/30/18 Time 11:09 Time 07:58 Time 16:38 Accucheck Value: 190 Accucheck Value: 134 Accucheck Value: 139 Accucheck Value: 119 Assessment/Plan (1) Debilitated patient Current Visit: Yes Status: Acute Code(s): R53.81 - OTHER MALAISE (2) STEMI (ST elevation myocardial infarction) Current Visit: No Status: Acute Qualifiers: Involved coronary artery: LAD coronary artery Qualified Code(s): I21.02 - ST elevation (STEMI) myocardial infarction involving left anterior descending coronary artery Code(s): I21.3 - ST ELEVATION (STEMI) MYOCARDIAL INFARCTION OF [facility] SITE (3) Diabetes type 2, controlled Current Visit: No Status: Chronic Qualifiers: Diabetes 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
[2018-05-01] MEDS: Ambien 5 MG Tablet PO SCH (21:59)
[2018-05-01] MEDS: Lidoderm Patch 5% TP SCH (21:59)
[2018-05-02 07:46] VITALS: PULSE 132
[2018-05-02 07:49] VITALS: BP 90/58
[2018-05-02 07:52] VITALS: O2SAT 96
[2018-05-02] MEDS ORDERED: BABY ASPIRIN 81 MG CHEW PO ONE (08:00)
[2018-05-02] MEDS ORDERED: MORPHINE SULFATE 4 MG INJ IV ONE (08:00)
[2018-05-04] MEDS ORDERED: Aplisol ID SCH (10:00)
== END 2018-05-02 07:29 | disposition still patient (30) | DRG 947 ==
LOC: MED SURG 14:30
PROVIDERS: ADMIT General Practice; ATTEND General Practice
DX: R53.81 Other malaise (principal); I21.3 ST elevation (STEMI) myocardial infarction of unspecified site; E11.9 Type 2 diabetes mellitus without complications; Z79.01 Long term (current) use of anticoagulants; Z79.899 Other long term (current) drug therapy; Z98.61 Coronary angioplasty status
CPT/HCPCS: 36415; 82962; 83036; 84484; 93005; 94760; J2270; 97110-GP; A9270-GY

== ENCOUNTER 2018-05-02 07:30 | Inpatient (IN) | payer MEDICARE, OTHER ==
[2018-05-02 08:15] VITALS: BP 90/58; PULSE 132; O2SAT 99
[2018-05-02] MEDS ORDERED: MORPHINE SULFATE 4 MG INJ IV PRN (08:30)
[2018-05-02] MEDS ORDERED: Sodium Chloride 0.9% 500 ML 500 ML IV SCH (08:30)
== END 2018-05-02 09:00 | disposition short-term general hospital (02) | DRG 313 ==
LOC: MED SURG 07:30
PROVIDERS: ADMIT General Practice; ATTEND General Practice
DX: R07.9 Chest pain, unspecified (principal); Z79.899 Other long term (current) drug therapy

== ENCOUNTER 2018-05-03 14:03 | Inpatient (IN) | payer MEDICARE, OTHER ==
[2018-05-03] MEDS ORDERED: Aplisol ID ONE (15:00)
[2018-05-03] MEDS ORDERED: Pain Relieving Rub TOP PRN (19:24)
[2018-05-03] MEDS ORDERED: Nitrostat 0.4 MG Tablet SL PRN (19:29)
[2018-05-03] MEDS ORDERED: Flonase NASAL NS ONE (19:42)
[2018-05-03] MEDS: Calcium 500MG W/Vit D Tablet PO SCH (21:15)
[2018-05-03] MEDS: Namenda 5 MG PO SCH (21:15)
[2018-05-03] MEDS: Colace 100 MG PO SCH (21:15)
[2018-05-03] MEDS: ENTRESTO 49 MG-51 MG TABLET PO SCH (21:17)
[2018-05-03] MEDS ORDERED: Glucophage 500 MG PO SCH (22:00)
[2018-05-03] MEDS ORDERED: BRILINTA PO SCH (22:00)
[2018-05-03] MEDS ORDERED: Lidoderm Patch 5% TOP SCH (22:00)
[2018-05-03] MEDS ORDERED: Haldol 5 MG IM PRN (23:11)
[2018-05-03] MEDS ORDERED: Haldol 5 MG IM ONE (23:14)
[2018-05-03 23:57] LABS: Hematocrit 35.4 % (42-50); Hemoglobin 11.8 gm/dl (12.5-18.0); Mean Cell Volume 90.3 fl (78-100); Mean Corpuscular Hemoglobin 30.1 pg (26-32); Mean Corpuscular Hgb Concent. 33.3 g/dl (32-36); Mean Platelet Volume 10.1 fl (6-9.5); Platelet Count 312 K/mm3 (150-450); Red Blood Count 3.92 M/mm3 (4.1-5.6); Red Cell Distribution Width 14.4 % (11.5-14.0); White Blood Count 9.6 K/mm3 (4.0-10.5)
[2018-05-04 00:08] LABS: ANION GAP 15.7 MEQ/L (5-15); Calcium 11.9 mg/dL (8.4-10.2); Creatinine 1 1.73 mg/dL (0.66-1.25); Potassium 3.6 mmol/L (3.5-5.1)
[2018-05-04] MEDS ORDERED: BRILINTA PO SCH (10:00)
[2018-05-04] MEDS ORDERED: LIPITOR 40MG PO SCH (10:00)
[2018-05-04] MEDS: Colace 100 MG PO SCH ×2 (10:03→23:31)
[2018-05-04] MEDS: ECOTRIN 81 MG PO SCH (10:03)
[2018-05-04] MEDS: Calcium 500MG W/Vit D Tablet PO SCH ×2 (10:03→23:49)
[2018-05-04] MEDS: Namenda 5 MG PO SCH ×2 (10:03→23:30)
[2018-05-04] MEDS: Glucophage 500 MG PO SCH ×2 (10:03→18:22)
[2018-05-04] MEDS: ENTRESTO 49 MG-51 MG TABLET PO SCH ×2 (10:04→23:33)
[2018-05-04] MEDS: Flonase NASAL NS SCH (10:05)
[2018-05-04] MEDS ORDERED: Ativan 2 MG/1 ML VIAL IM ONE (12:57)
[2018-05-04] MEDS ORDERED: Ativan 2 MG/1 ML VIAL ONE (13:01)
[2018-05-04] MEDS: Lidoderm Patch 5% TOP SCH (23:36)
[2018-05-05 06:53] LABS: Appearance CLEAR (CLEAR); Bacteria RARE /HPF (NEGATIVE); Bilirubin NEGATIVE (NEGATIVE); Blood NEGATIVE Ery/ul (0-5); Glucose NEGATIVE (NEGATIVE); Hyaline Casts 0-2 /LPF (0-2); Ketones TRACE (NEGATIVE); Leukocyte Esterase NEGATIVE (NEGATIVE); Mucus SLIGHT /HPF (NEGATIVE); Nitrite NEGATIVE (NEGATIVE); Protein,Urine Dip NEGATIVE (Negative); RBC 0-2 /HPF (0-2); Specific Gravity 1.018 (1.005-1.025); Urobilinogen NEGATIVE mg/dL (0-1); WBC 0-2 /HPF (0-5)
[2018-05-05] MEDS: TYLENOL 325 MG PO PRN (09:10)
[2018-05-05] MEDS: PLAVIX 75 MG Tablet PO SCH (09:31)
[2018-05-05] MEDS: Calcium 500MG W/Vit D Tablet PO SCH ×2 (09:31→20:42)
[2018-05-05] MEDS: Glucophage 500 MG PO SCH ×2 (09:31→17:31)
[2018-05-05] MEDS: Colace 100 MG PO SCH ×2 (09:31→20:42)
[2018-05-05] MEDS: ENTRESTO 49 MG-51 MG TABLET PO SCH ×2 (09:32→20:46)
[2018-05-05] MEDS: Namenda 5 MG PO SCH ×2 (09:32→20:42)
[2018-05-05] MEDS: ECOTRIN 81 MG PO SCH (09:32)
[2018-05-05] MEDS: Flonase NASAL NS SCH (09:33)
[2018-05-05] MEDS: KEFLEX 500 MG PO SCH ×2 (17:31→22:17)
[2018-05-05] MEDS: Lidoderm Patch 5% TOP SCH (20:43)
[2018-05-06] MEDS: TYLENOL 325 MG PO PRN ×2 (00:24→16:40)
[2018-05-06] MEDS: Glucophage 500 MG PO SCH ×2 (08:03→16:39)
[2018-05-06] MEDS: PATIENT OWN MEDICATION PO SCH ×2 (08:03→16:40)
--- NOTE | 2018-05-06 08:19 | HP ---
HISTORY OF PRESENT ILLNESS: The history has been gathered from emergency room patient chart. The patient is unable to provide history. The patient is a poor historian. The patient per family had prior admission at [facility] and also has been gathered from patient's chart. Gerardo Euceda is a 72 year old white male with past medical history of hypertension, coronary artery disease, cardiomyopathy, diabetes mellitus, dementia, anxiety. He was recently admitted to [facility] with non-ST elevation myocardial infarction and underwent PCI and subsequently discharged to [facility] on 04/23/2018. Reportedly while they were there, the patient had not been receiving his Brilinta as it was nonformulary. The patient had episode of vague chest pain and was transferred back to cardiology on 05/02/2018. As per the chart at [facility], while at [facility] the patient did undergo work up and treatment per cardiology. Eventually his chest pain had been relieved. The patient was transferred back to [facility] yesterday. Since transfer the patient had episode of confusion and agitation. The patient was treated with Haldol. At the time of this evaluation earlier this today, the patient was sleeping comfortably, difficult to arouse. Appeared comfortable. PAST MEDICAL HISTORY: As noted above. Arthritis, severe arterial stenosis and plan was to do open heart surgery valve replacement (in four to six weeks). The patient is very hard of hearing. PAST SURGICAL HISTORY: Cardiac catheterization with stent placement. Cholecystectomy. Bilateral rotator cuff repair. Hernia repair. ALLERGIES: STATINS. MEDICATIONS: Current medications were reviewed. FAMILY HISTORY: Noncontributory. SOCIAL HISTORY: The patient is a former smoker. REVIEW OF SYSTEMS: Unobtainable since the patient was sleeping. History of chest pain which has resolved. History of confusion, agitation last night which was resolved after Haldol. PHYSICAL EXAMINATION: An elderly man lying comfortably in bed, not in acute distress. VITAL SIGNS: Blood pressure 133/87, heart rate 99, respiratory rate 18, temperature 98.4F. Oxygen saturation 96% on room air. HEENT: Pallor is present. NECK: No JVD is present. CVS: S1, S2 present. RESPIRATORY: Breath sounds are bilaterally diminished. ABDOMEN: Obese, soft. NEURO: The patient was sleeping (history of agitation requiring treatment). EXTREMITIES: Revealed ecchymosis in right groin from prior cath. No edema present on bilateral lower extremities. LABORATORY DATA AND TESTS: Labs from last night were notable for CBC with white blood cell 9.6, hemoglobin 11.2, hematocrit 35.4, PLT 290,000. BMP was notable for glucose 137, BUN 24, creatinine 1.73. Chest x-ray from [facility] showed nonspecific finding of right hemidiaphragm. ASSESSMENT: A 72 year old man with impression: 1) Deconditioning. 2) Generalized weakness. 3) Recently history of status post ST-elevation myocardial infarction status post PCI. 4) Aortic stenosis. 5) History of hypertension/coronary artery disease. 6) Diabetes mellitus. 7) Dementia. 8) Anxiety. 9) Hearing loss. 10) Confusion. PLAN: 1) The patient was transferred back after undergoing work up and treatment. The patient's chest pain symptoms have resolved. He underwent work up and treatment per cardiology and was transferred back to rehab on 05/03/2018. 2) Fall precautions. 3) The patient will start PT/OT as directed. 4) Continue to monitor patient's neurological status, will obtain UA in view of confusion. 5) The patient's cardiac medications, Brilinta and aspirin to be adjusted by cardiology. I have advised the patient's nurse to check with [employer] assistant regarding choice of his medications. The plan was discussed with patient's nurse, Leann, as no family members were available.
[2018-05-06] MEDS: Colace 100 MG PO SCH ×2 (09:36→22:27)
[2018-05-06] MEDS: ENTRESTO 49 MG-51 MG TABLET PO SCH ×2 (09:36→22:27)
[2018-05-06] MEDS: ECOTRIN 81 MG PO SCH (09:36)
[2018-05-06] MEDS: Namenda 5 MG PO SCH ×2 (09:37→22:29)
[2018-05-06] MEDS: PLAVIX 75 MG Tablet PO SCH (09:37)
[2018-05-06] MEDS: Calcium 500MG W/Vit D Tablet PO SCH ×2 (09:37→22:26)
[2018-05-06] MEDS: Flonase NASAL NS SCH (09:37)
[2018-05-06] MEDS: KEFLEX 500 MG PO SCH ×4 (09:37→22:28)
--- NOTE | 2018-05-06 12:39 | PROG NOTE ---
DATE: 05/05/2018 Chart is reviewed and events noted. The patient had increased agitation/confusion yesterday. Medications were changed to PRN Ativan which helped him better. At the time of this evaluation the patient is alert, awake, comfortable, sitting in chair, denies complaints. PHYSICAL EXAMINATION: VITAL SIGNS: Blood pressure 148/77, heart rate 105, respiratory rate 18, temperature 98.2F. Oxygen saturation 95% on room air. HEENT: Pallor is present. No icterus is noted. NECK: No JVD is present. CVS: S1, S2 present. RESPIRATORY: Breath sounds are bilaterally diminished, clear to auscultation anteriorly. ABDOMEN: Obese, soft, nontender. NEURO: He is alert, awake, cooperative, hard of hearing, answers simple questions. EXTREMITIES: No edema on bilateral lower extremities. LABORATORY DATA AND TESTS: UA from yesterday shows 0 to 2 white blood cells, 0 to 2 red blood cells, 0 to 2 hyaline cast, no epithelial cells, rare bacteria. Medications were reviewed. ASSESSMENT: A 72 year old man with impression: 1) Generalized weakness. 2) History of confusion question of early urinary tract infection. 3) STEMI status post PCI. 4) History of hypertension/coronary artery disease. 5) Dementia. 6) Chronic anemia. 7) Diabetes mellitus. PLAN: The patient will start PT as tolerated tomorrow. Will add empiric antibiotic in lieu of questionable urinary tract infection. Continue to monitor neurological and hemodynamic status. Continue to follow CBC and electrolytes. The patient's clinical condition, available work-up results and plan of management as outlined were discussed with patient's . She seems to be in understanding and agreement. The plan was discussed with patient's nurse.
[2018-05-06] MEDS: Lidoderm Patch 5% TOP SCH (22:37)
[2018-05-07] MEDS: KEFLEX 500 MG PO SCH ×4 (07:41→22:32)
[2018-05-07] MEDS: Namenda 5 MG PO SCH ×2 (07:41→22:33)
[2018-05-07] MEDS: PATIENT OWN MEDICATION PO SCH ×2 (07:41→18:51)
[2018-05-07] MEDS: Colace 100 MG PO SCH ×2 (07:42→22:31)
[2018-05-07] MEDS: Glucophage 500 MG PO SCH ×2 (07:42→18:50)
[2018-05-07] MEDS: ECOTRIN 81 MG PO SCH (07:42)
[2018-05-07] MEDS: ENTRESTO 49 MG-51 MG TABLET PO SCH ×2 (07:43→22:32)
[2018-05-07] MEDS: Flonase NASAL NS SCH (07:44)
[2018-05-07] MEDS: PLAVIX 75 MG Tablet PO SCH (07:45)
[2018-05-07] MEDS: Calcium 500MG W/Vit D Tablet PO SCH ×2 (07:46→22:31)
--- NOTE | 2018-05-07 12:46 | PCM.NOTE ---
Date and Time: 05/07/18 1245 Subjective Assessment: as above - Review of Systems Constitutional: No Fever, No Chills Eyes: No Symptoms Ears, Nose, & Throat: No Symptoms Respiratory: No Cough, No Short Of Breath Cardiac: No Chest Pain, No Edema, No Syncope Abdominal/Gastrointestinal: No Abdominal Pain, No Nausea, No Vomiting, No Diarrhea Genitourinary Symptoms: No Dysuria Musculoskeletal: No Back Pain, No Neck Pain Skin: No Rash Neurological: No Dizziness, No Focal Weakness, No Sensory Changes Psychological: No Symptoms Endocrine: No Symptoms Hematologic/Lymphatic: No Symptoms Immunological/Allergic: No Symptoms Objective Exam General Appearance: no apparent distress, alert Neurologic Exam: alert, oriented x 3, cooperative, normal mood/affect, nml cerebellar function, sensation nml, No motor deficits Skin Exam: normal color, warm, dry Eye Exam: PERRL, EOMI, eyes nml inspection Ears, Nose, Throat Exam: normal ENT inspection, pharynx normal, moist mucous membranes Neck Exam: normal inspection, non-tender, supple, full range of motion Respiratory Exam: normal breath sounds, lungs clear, No respiratory distress Cardiovascular Exam: regular rate/rhythm, normal heart sounds Gastrointestinal/Abdomen Exam: soft, No tenderness, No mass Extremity Exam: normal inspection, normal range of motion Back Exam: normal inspection, normal range of motion, No CVA tenderness, No vertebral tenderness Male Genitalia Exam: deferred Rectal Exam: deferred OBJECTIVE DATA Vital Signs: Vital Signs - 24 hr Temp Pulse Resp BP Pulse Ox 05/07/18 08:00 98.1 F 118 H 18 117/67 92 L 05/06/18 20:00 98.3 F 114 H 18 122/77 94 L Pain Assessment - Last Documented Pain Intensity 0 Pain Scale Used [facility] Intake and Output: Intake & Output 05/05/18 05/06/18 05/07/18 05/08/18 11:59 11:59 11:59 11:59 Intake Total 300 520 840 Output Total 80 Balance 220 520 840 Weight 99.5 kg Lab Results: Accuchecks Date 05/07/18 Date 05/06/18 Time 07:30 Accucheck Value: 166 Accucheck Value: 156 Accucheck Value: 168 Lab Results-Last 24 Hours 05/06/18 05/07/18 Range/Units 19:33 05:22 Troponin I 0.405 H* 0.351 H* (0.000-0.034) ng/mL Assessment/Plan (1) CAD (coronary artery disease) Current Visit: Yes Status: Acute Qualifiers: Coronary Disease-Associated Artery/Lesion type: [place] artery Associated angina: with stable angina Code(s): I25.10 - ATHSCL HEART DISEASE OF [place] CORONARY ARTERY W/O ANG PCTRS (2) STEMI (ST elevation myocardial infarction) Current Visit: No Status: Acute Qualifiers: Code(s): I21.3 - ST ELEVATION (STEMI) MYOCARDIAL INFARCTION OF [facility] SITE (3) Diabetes type 2, controlled Current Visit: No Status: Chronic Qualifiers: Diabetes mellitus retirement insulin use: without terminal worker use Diabetes mellitus complication status: with circulatory complication Diabetes mellitus complication detail: with other circulatory complications Qualified Code(s): E11.59 - Type 2 diabetes mellitus with other circulatory complications Code(s): E11.9 - TYPE 2 DIABETES MELLITUS WITHOUT COMPLICATIONS
[2018-05-07] MEDS: Lidoderm Patch 5% TOP SCH (22:33)
--- NOTE | 2018-05-08 08:44 | PCM.NOTE ---
Date and Time: 05/08/18 0843 Subjective Assessment: doing ok - Review of Systems Constitutional: No Fever, No Chills Eyes: No Symptoms Ears, Nose, & Throat: No Symptoms Respiratory: No Cough, No Short Of Breath Cardiac: No Chest Pain, No Edema, No Syncope Abdominal/Gastrointestinal: No Abdominal Pain, No Nausea, No Vomiting, No Diarrhea Genitourinary Symptoms: No Dysuria Musculoskeletal: No Back Pain, No Neck Pain Skin: No Rash Neurological: No Dizziness, No Focal Weakness, No Sensory Changes Psychological: No Symptoms Endocrine: No Symptoms Hematologic/Lymphatic: No Symptoms Immunological/Allergic: No Symptoms Objective Exam General Appearance: no apparent distress, alert Neurologic Exam: alert, oriented x 3, cooperative, normal mood/affect, nml cerebellar function, sensation nml, No motor deficits Skin Exam: normal color, warm, dry Eye Exam: PERRL, EOMI, eyes nml inspection Ears, Nose, Throat Exam: normal ENT inspection, pharynx normal, moist mucous membranes Neck Exam: normal inspection, non-tender, supple, full range of motion Respiratory Exam: normal breath sounds, lungs clear, No respiratory distress Cardiovascular Exam: regular rate/rhythm, normal heart sounds Gastrointestinal/Abdomen Exam: soft, No tenderness, No mass Extremity Exam: normal inspection, normal range of motion Back Exam: normal inspection, normal range of motion, No CVA tenderness, No vertebral tenderness Male Genitalia Exam: deferred Rectal Exam: deferred OBJECTIVE DATA Vital Signs: Vital Signs - 24 hr Temp Pulse Resp BP Pulse Ox 05/08/18 08:00 98.3 F 93 H 18 118/74 93 L 05/07/18 20:00 98.0 F 102 H 17 140/63 93 L Pain Assessment - Last Documented Pain Intensity 0 Pain Scale Used FLACC Intake and Output: Intake & Output 05/05/18 05/06/18 05/07/18 05/08/18 11:59 11:59 11:59 11:59 Intake Total 300 431 870 1874 Output Total 80 Balance 220 819 573 5684 Weight 99.5 kg Lab Results: Accuchecks Date 05/07/18 Date 05/07/18 Time 16:30 Time 11:30 Accucheck Value: 127 Accucheck Value: 132 Accucheck Value: 136 Assessment/Plan (1) CAD (coronary artery disease) Current Visit: Yes Status: Acute Qualifiers: Coronary Disease-Associated Artery/Lesion type: [place] artery Associated angina: with stable angina Code(s): I25.10 - ATHSCL HEART DISEASE OF [place] CORONARY ARTERY W/O ANG PCTRS (2) STEMI (ST elevation myocardial infarction) Current Visit: Yes Status: Resolved Qualifiers: Involved coronary artery: LAD coronary artery Code(s): I21.3 - ST ELEVATION (STEMI) MYOCARDIAL INFARCTION OF [facility] SITE (3) Diabetes type 2, controlled Current Visit: Yes Status: Chronic Qualifiers: Diabetes 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
[2018-05-08] MEDS: Glucophage 500 MG PO SCH ×2 (09:16→19:04)
[2018-05-08] MEDS: TYLENOL 325 MG PO PRN ×2 (09:16→21:46)
[2018-05-08] MEDS: Colace 100 MG PO SCH ×2 (09:16→21:41)
[2018-05-08] MEDS: KEFLEX 500 MG PO SCH ×4 (09:16→21:41)
[2018-05-08] MEDS: Calcium 500MG W/Vit D Tablet PO SCH ×2 (09:16→21:40)
[2018-05-08] MEDS: PLAVIX 75 MG Tablet PO SCH (09:16)
[2018-05-08] MEDS: ECOTRIN 81 MG PO SCH (09:16)
[2018-05-08] MEDS: Namenda 5 MG PO SCH ×2 (09:16→21:41)
[2018-05-08] MEDS: ENTRESTO 49 MG-51 MG TABLET PO SCH ×2 (09:20→21:40)
[2018-05-08] MEDS: PATIENT OWN MEDICATION PO SCH ×2 (09:21→19:04)
[2018-05-08] MEDS: Flonase NASAL NS SCH (09:22)
[2018-05-08] MEDS: Lidoderm Patch 5% TOP SCH (21:55)
[2018-05-09] MEDS: Glucophage 500 MG PO SCH ×3 (08:14→19:18)
[2018-05-09] MEDS: PATIENT OWN MEDICATION PO SCH ×3 (08:17→19:21)
--- NOTE | 2018-05-09 09:20 | PCM.NOTE ---
Date and Time: 05/09/18918 Subjective Assessment: have an appointment with psychological aide today - Review of Systems Constitutional: No Fever, No Chills Eyes: No Symptoms Ears, Nose, & Throat: No Symptoms Respiratory: No Cough, No Short Of Breath Cardiac: No Chest Pain, No Edema, No Syncope Abdominal/Gastrointestinal: No Abdominal Pain, No Nausea, No Vomiting, No Diarrhea Genitourinary Symptoms: No Dysuria Musculoskeletal: No Back Pain, No Neck Pain Skin: No Rash Neurological: No Dizziness, No Focal Weakness, No Sensory Changes Psychological: No Symptoms Endocrine: No Symptoms Hematologic/Lymphatic: No Symptoms Immunological/Allergic: No Symptoms Objective Exam General Appearance: no apparent distress, alert Neurologic Exam: alert, oriented x 3, cooperative, normal mood/affect, nml cerebellar function, sensation nml, No motor deficits Skin Exam: normal color, warm, dry Eye Exam: PERRL, EOMI, eyes nml inspection Ears, Nose, Throat Exam: normal ENT inspection, pharynx normal, moist mucous membranes Neck Exam: normal inspection, non-tender, supple, full range of motion Respiratory Exam: normal breath sounds, lungs clear, No respiratory distress Cardiovascular Exam: regular rate/rhythm, normal heart sounds Gastrointestinal/Abdomen Exam: soft, No tenderness, No mass Extremity Exam: normal inspection, normal range of motion Back Exam: normal inspection, normal range of motion, No CVA tenderness, No vertebral tenderness Male Genitalia Exam: deferred Rectal Exam: deferred OBJECTIVE DATA Vital Signs: Vital Signs - 24 hr Temp Pulse Resp BP Pulse Ox 05/09/18 08:00 97.5 F 84 18 130/65 94 L 05/08/18 20:00 97.6 F 100 H 20 108/68 93 L Pain Assessment - Last Documented Pain Intensity 8 Pain Scale Used [facility] Intake and Output: Intake & Output 05/06/18 05/07/18 05/08/18 05/09/18 11:59 11:59 11:59 11:59 Intake Total 347 792 0117 720 Balance 264 698 3487 720 Weight 99.5 kg Lab Results: Accuchecks Date 05/09/18 Date 05/08/18 Date 05/08/18 Date 05/08/18 Time 07:30 Time 21:30 Time 16:30 Time 11:30 Accucheck Value: 132 Accucheck Value: 148 Accucheck Value: 138 Accucheck Value: 157 Assessment/Plan (1) CAD (coronary artery disease) Current Visit: Yes Status: Acute Qualifiers: Coronary Disease-Associated Artery/Lesion type: [place] artery Associated angina: with stable angina Code(s): I25.10 - ATHSCL HEART DISEASE OF [place] CORONARY ARTERY W/O ANG PCTRS (2) STEMI (ST elevation myocardial infarction) Current Visit: Yes Status: Resolved Qualifiers: Involved coronary artery: LAD coronary artery Code(s): I21.3 - ST ELEVATION (STEMI) MYOCARDIAL INFARCTION OF [facility] SITE (3) Diabetes type 2, controlled Current Visit: Yes Status: Chronic Qualifiers: Diabetes mellitus salvage determiner insulin use: without salvage determiner use Diabetes mellitus complication status: with circulatory complication Diabetes mellitus complication detail: with other circulatory complications Qualified Code(s): E11.59 - Type 2 diabetes mellitus with other circulatory complications Code(s): E11.9 - TYPE 2 DIABETES MELLITUS WITHOUT COMPLICATIONS
[2018-05-09] MEDS: KEFLEX 500 MG PO SCH ×5 (11:10→22:26)
[2018-05-09] MEDS: ENTRESTO 49 MG-51 MG TABLET PO SCH ×2 (11:11→22:25)
[2018-05-09] MEDS: ECOTRIN 81 MG PO SCH (11:11)
[2018-05-09] MEDS: Calcium 500MG W/Vit D Tablet PO SCH ×2 (11:11→22:25)
[2018-05-09] MEDS: Colace 100 MG PO SCH ×2 (11:11→22:26)
[2018-05-09] MEDS: PLAVIX 75 MG Tablet PO SCH (11:11)
[2018-05-09] MEDS: Namenda 5 MG PO SCH ×2 (11:12→22:26)
[2018-05-09] MEDS: Flonase NASAL NS SCH (11:12)
[2018-05-09] MEDS: Lidoderm Patch 5% TOP SCH (22:27)
[2018-05-10] MEDS: Calcium 500MG W/Vit D Tablet PO SCH ×2 (11:50→22:15)
[2018-05-10] MEDS: ECOTRIN 81 MG PO SCH (11:51)
[2018-05-10] MEDS: KEFLEX 500 MG PO SCH ×4 (11:51→22:17)
[2018-05-10] MEDS: Namenda 5 MG PO SCH ×2 (11:51→22:17)
[2018-05-10] MEDS: PLAVIX 75 MG Tablet PO SCH (11:51)
[2018-05-10] MEDS: Colace 100 MG PO SCH ×2 (11:52→22:15)
[2018-05-10] MEDS: Glucophage 500 MG PO SCH ×2 (11:52→16:36)
[2018-05-10] MEDS: PATIENT OWN MEDICATION PO SCH ×2 (11:53→16:36)
[2018-05-10] MEDS: ENTRESTO 49 MG-51 MG TABLET PO SCH ×2 (11:54→22:16)
[2018-05-10] MEDS: Flonase NASAL NS SCH (11:58)
[2018-05-10] MEDS: TYLENOL 325 MG PO PRN (17:47)
[2018-05-10] MEDS: Lidoderm Patch 5% TOP SCH (22:14)
[2018-05-11] MEDS: TYLENOL 325 MG PO PRN (08:46)
[2018-05-11] MEDS: Calcium 500MG W/Vit D Tablet PO SCH ×2 (08:46→22:15)
[2018-05-11] MEDS: ECOTRIN 81 MG PO SCH (08:47)
[2018-05-11] MEDS: Colace 100 MG PO SCH ×2 (08:47→22:15)
[2018-05-11] MEDS: PLAVIX 75 MG Tablet PO SCH (08:47)
[2018-05-11] MEDS: KEFLEX 500 MG PO SCH ×4 (08:47→22:15)
[2018-05-11] MEDS: Glucophage 500 MG PO SCH ×2 (08:47→17:36)
[2018-05-11] MEDS: Namenda 5 MG PO SCH ×2 (08:47→22:15)
[2018-05-11] MEDS: Flonase NASAL NS SCH (08:48)
[2018-05-11] MEDS: ENTRESTO 49 MG-51 MG TABLET PO SCH ×2 (08:48→22:14)
[2018-05-11] MEDS: PATIENT OWN MEDICATION PO SCH ×2 (08:53→17:36)
[2018-05-11] MEDS: Lidoderm Patch 5% TOP SCH (22:15)
[2018-05-12] MEDS: Glucophage 500 MG PO SCH ×2 (08:53→17:25)
[2018-05-12] MEDS: PATIENT OWN MEDICATION PO SCH ×2 (09:20→17:25)
[2018-05-12] MEDS: Colace 100 MG PO SCH ×2 (09:21→21:33)
[2018-05-12] MEDS: ECOTRIN 81 MG PO SCH (09:21)
[2018-05-12] MEDS: Calcium 500MG W/Vit D Tablet PO SCH ×2 (09:21→21:33)
[2018-05-12] MEDS: ENTRESTO 49 MG-51 MG TABLET PO SCH ×2 (09:23→21:34)
[2018-05-12] MEDS: PLAVIX 75 MG Tablet PO SCH (09:24)
[2018-05-12] MEDS: Namenda 5 MG PO SCH ×2 (09:24→21:33)
[2018-05-12] MEDS: KEFLEX 500 MG PO SCH ×4 (09:27→21:35)
[2018-05-12] MEDS: Flonase NASAL NS SCH (09:34)
[2018-05-12] MEDS: Lidoderm Patch 5% TOP SCH (21:35)
[2018-05-13] MEDS: Glucophage 500 MG PO SCH ×2 (08:56→17:50)
[2018-05-13] MEDS: PATIENT OWN MEDICATION PO SCH ×2 (08:57→17:49)
[2018-05-13] MEDS: KEFLEX 500 MG PO SCH ×3 (10:37→12:47)
[2018-05-13] MEDS: PLAVIX 75 MG Tablet PO SCH (10:37)
[2018-05-13] MEDS: Calcium 500MG W/Vit D Tablet PO SCH ×2 (10:38→21:14)
[2018-05-13] MEDS: Colace 100 MG PO SCH ×2 (10:38→21:14)
[2018-05-13] MEDS: Namenda 5 MG PO SCH ×2 (10:40→21:14)
[2018-05-13] MEDS: ECOTRIN 81 MG PO SCH (10:40)
[2018-05-13] MEDS: ENTRESTO 49 MG-51 MG TABLET PO SCH ×2 (10:41→21:16)
[2018-05-13] MEDS: Flonase NASAL NS SCH (10:43)
[2018-05-13] MEDS: TYLENOL 325 MG PO PRN (20:07)
[2018-05-13] MEDS: Lidoderm Patch 5% TOP SCH (21:14)
[2018-05-14 07:42] VITALS: PULSE 109
[2018-05-14] MEDS: Glucophage 500 MG PO SCH ×2 (07:50→16:52)
[2018-05-14] MEDS: PATIENT OWN MEDICATION PO SCH ×2 (07:50→16:52)
[2018-05-14] MEDS: PLAVIX 75 MG Tablet PO SCH (09:22)
[2018-05-14] MEDS: ECOTRIN 81 MG PO SCH (09:22)
[2018-05-14] MEDS: Colace 100 MG PO SCH ×2 (09:22→21:53)
[2018-05-14] MEDS: ENTRESTO 49 MG-51 MG TABLET PO SCH ×2 (09:22→21:53)
[2018-05-14] MEDS: Calcium 500MG W/Vit D Tablet PO SCH ×2 (09:22→21:52)
[2018-05-14] MEDS: Flonase NASAL NS SCH (09:22)
[2018-05-14] MEDS: Namenda 5 MG PO SCH ×2 (09:22→21:54)
[2018-05-14 20:35] VITALS: BP 114/81
[2018-05-14] MEDS: Lidoderm Patch 5% TOP SCH (21:51)
[2018-05-15 08:38] VITALS: O2SAT 95
--- NOTE | 2018-05-15 08:44 | PCM.DS ---
Discharge Summary Date of Admission: 05/03/18 17:35 Admitting Physician: DEE MAYS Primary Care Provider: [facility] Allergies Allergies [id number] Reductase Inhibitor Allergy (Verified 04/23/18 16:28) Hospital Summary - Vitals & Intake/Output Vital Signs: Vital Signs Temperature 97.5 F 05/14/18 20:00 Pulse Rate 109 H 05/14/18 20:00 Respiratory Rate 20 05/14/18 20:00 Blood Pressure 114/81 05/14/18 20:00 O2 Sat by Pulse Oximetry 94 L 05/14/18 20:00 Intake & Output: Intake & Output 05/12/18 05/13/18 05/14/18 05/15/18 11:59 11:59 11:59 11:59 Intake Total 1220 440 240 360 Balance 1220 440 240 360 - Lab Result Diagrams: 05/03/18 23:52 05/03/18 23:52 Lab Results-Last 24 Hrs: Accuchecks Date 05/15/18 Date 05/14/18 Date 05/14/18 Time 07:39 Time 16:57 Time 12:25 Accucheck Value: 135 Accucheck Value: 129 Accucheck Value: 134 Accucheck Value: 151 Micro Results-Entire Visit: Accuchecks Date 05/15/18 Date 05/14/18 Date 05/14/18 Time 07:39 Time 16:57 Time 12:25 Accucheck Value: 135 Accucheck Value: 129 Accucheck Value: 134 Accucheck Value: 151 - Procedures and Test Procedures and Tests throughout Hospitalization: Therapy Orders & Screens 05/03/18 15:00 PT Eval & Treat ( Order) DAILY Reason for Eval:: DECONDITIONING R/T +STEMI, PTCA Diagnosis: DECONDITIONING R/T +STEMI, PTCA 05/06/18 19:13 EKG STAT Comment: Diagnosis: DECONDITIONING R/T +STEMI, PTCA Discharge Exam General Appearance: no apparent distress, alert Neurologic Exam: alert, oriented x 3, cooperative, normal mood/affect, nml cerebellar function, sensation nml, No motor deficits Skin Exam: normal color, warm, dry Eye Exam: PERRL, EOMI, eyes nml inspection Ears, Nose, Throat Exam: normal ENT inspection, pharynx normal, moist mucous membranes Neck Exam: normal inspection, non-tender, supple, full range of motion Respiratory Exam: normal breath sounds, lungs clear, No respiratory distress Cardiovascular Exam: regular rate/rhythm, normal heart sounds Gastrointestinal/Abdomen Exam: soft, No tenderness, No mass Extremity Exam: normal inspection, normal range of motion Back Exam: normal inspection, normal range of motion, No CVA tenderness, No vertebral tenderness Male Genitalia Exam: deferred Rectal Exam: deferred Final Diagnosis/Problem List - Final Discharge Diagnosis/Problem (1) CAD (coronary artery disease) Current Visit: Yes Status: Acute (2) STEMI (ST elevation myocardial infarction) Current Visit: Yes Status: Resolved (3) Diabetes type 2, controlled Current Visit: Yes Status: Chronic - Discharge Discharge Date: 05/15/18 Disposition: Hospice @ [facility] Condition: Stable Prescriptions: Continue Ticagrelor [Brilinta] 90 mg PO BID Sacubitril/Valsartan [Entresto 24 mg-26 mg Tablet] 0.5 tab PO BID Nitroglycerin 0.4 mg Tablet [Nitrostat 0.4 MG Tablet] 0.4 mg SL UD Metformin HCl [Fortamet] 500 mg PO BID Menthol [Bengay] 85 gm TP TIDPRN PRN PRN Reason: Pain Memantine HCl 5 mg [Namenda 5 MG] 5 mg PO BID Lidocaine 2 each TP HS Fluticasone Propionate [Flonase NASAL] 2 inh NS DAILY Docusate Sodium [Colace] 100 mg PO BID Calcium Carbonate/Vitamin D3 [Os-Srikanth 500-Vit D3 600 Caplet] 2 tab PO BID Aspirin EC 81 mg [Ecotrin 81 mg] 81 mg PO DAILY Acetaminophen [Tylenol] 325 mg PO Q4HPRN PRN PRN Reason: Pain Atorvastatin Calcium [Lipitor] 80 mg PO DAILY Vit C/E/Zn/Coppr/Lutein/Zeaxan [Preservision Areds 2 Softgel] 1 cap PO BIDWM Follow up with: CHUCK SALDAÑA MD [NON-STAFF PHY W/O PRIVILEGES] - 05/16/18 2:30 pm [facility] [Primary Care Provider] - 1 Week
[2018-05-15] MEDS: Glucophage 500 MG PO SCH (09:43)
[2018-05-15] MEDS: Colace 100 MG PO SCH (09:58)
[2018-05-15] MEDS: PLAVIX 75 MG Tablet PO SCH (09:58)
[2018-05-15] MEDS: ECOTRIN 81 MG PO SCH (09:58)
[2018-05-15] MEDS: Calcium 500MG W/Vit D Tablet PO SCH (09:58)
[2018-05-15] MEDS: ENTRESTO 49 MG-51 MG TABLET PO SCH (09:58)
[2018-05-15] MEDS: Namenda 5 MG PO SCH (09:58)
[2018-05-15] MEDS: Flonase NASAL NS SCH (09:59)
[2018-05-15] MEDS: PATIENT OWN MEDICATION PO SCH (10:05)
== END 2018-05-15 12:00 | disposition hospice, home (50) | DRG 303 ==
LOC: MED SURG 17:35
PROVIDERS: ADMIT General Practice; ATTEND General Practice
DX: I25.10 Atherosclerotic heart disease of native coronary artery without angina pectoris (principal); I25.2 Old myocardial infarction; E11.9 Type 2 diabetes mellitus without complications; I10 Essential (primary) hypertension; R53.1 Weakness; I35.0 Nonrheumatic aortic (valve) stenosis; F03.90 Unspecified dementia, unspecified severity, without behavioral disturbance, psychotic disturbance, mood disturbance, and anxiety; F41.9 Anxiety disorder, unspecified; H91.90 Unspecified hearing loss, unspecified ear; R41.0 Disorientation, unspecified; D64.9 Anemia, unspecified; Z79.4 Long term (current) use of insulin; Z79.899 Other long term (current) drug therapy
CPT/HCPCS: 36415; 80048; 81001; 82962; 84484; 85027; 93005; J1630; J2060; 97110-GP; A9270-GY